=== PATIENT | male | born 1935 | race Caucasian/White ===

== ENCOUNTER 2018-03-30 17:59 | Inpatient (IN) | payer MEDICARE, OTHER ==
[2018-03-30 19:08] LABS: ADD MAN DIFF? NO; BASOPHIL # 0.1 10^3/ul (0.0-0.1); BASOPHILS % 0.8 % (0.0-2.0); EOSINOPHILS # 0.7 10^3/ul (0.0-0.5); EOSINOPHILS % 5.4 % (0.0-7.0); HEMATOCRIT 33.7 % (42.0-52.0); HEMOGLOBIN 10.2 g/dl (14.0-18.0); LYMPHOCYTES # 2.2 10^3/ul (0.8-2.9); LYMPHOCYTES % 17.2 % (15.0-51.0); MEAN CORPUSCULAR HEMOGLOBIN 28.7 pg (29.0-33.0); MEAN CORPUSCULAR HGB CONC 30.3 g/dl (32.0-37.0); MEAN CORPUSCULAR VOLUME 94.7 fl (82.0-101.0); MEAN PLATELET VOLUME 9.9 fl (7.4-10.4); MONOCYTE # 1.2 10^3/ul (0.3-0.9); MONOCYTES % 9.2 % (0.0-11.0); NEUTROPHIL # 8.5 10^3/ul (1.6-7.5); NEUTROPHILS % 66.7 % (39.0-77.0); PLATELET COUNT 440 10^3/UL (140-415); RED BLOOD COUNT 3.56 10^6/ul (4.70-6.10); RED CELL DISTRIBUTION WIDTH 15.4 % (11.5-14.5)
[2018-03-30 19:08] LABS: WHITE BLOOD COUNT 12.8 10^3/ul (4.8-10.8)
[2018-03-30 19:11] LABS: AADO2 Arterial 101.8 mmHg (7.0-24.0); Allen Test ACCEPTAB; Arterial Base Excess 3.6 mmol/L (-3.0-3); Arterial Blood Gas Oxygen Sat 92.3 mmHG (95.0-100.0); Arterial COHb 0.2 % (0.0-3.0); Arterial Fraction of Oxyhgb 91.8 % (93.0-99.0); Arterial HCO3 27.5 mmol/L (22.0-26.0); Arterial MetHb 0.3 % (0.0-1.5); Arterial pCO2 38.8 mmhg (35-45); MODE NASAL CANNULA; Site Right Radial
[2018-03-30 19:29] LABS: INR 1.05; PROTIME 13.8 Sec (11.9-14.9); PT RATIO 1.1
[2018-03-30 19:30] LABS: PARTIAL THROMBOPLASTIN TIME 31.5 Sec (23.0-35.0)
[2018-03-30 19:36] LABS: ALANINE AMINOTRANSFERASE < 6 IU/L (13-69); ALBUMIN 3.6 g/dl (3.3-4.9); ALBUMIN/GLOBULIN RATIO 0.72; ALKALINE PHOSPHATASE 145 IU/L (42-121); ANION GAP 11 (5-13); ASPARTATE AMINO TRANSFERASE 23 IU/L (15-46); BILIRUBIN,INDIRECT 0.1 mg/dl (0-1.1); BILIRUBIN,TOTAL 0.1 mg/dl (0.2-1.3); BLOOD UREA NITROGEN 59 mg/dl (7-20); CALCIUM 11.4 mg/dl (8.4-10.2); CARBON DIOXIDE 29 mmol/L (21-31); CHLORIDE 107 mmol/L (97-110); CREATININE 1.07 mg/dl (0.61-1.24); GLUCOSE 98 mg/dl (70-220); SODIUM 147 mmol/L (135-144); TOTAL PROTEIN 8.6 g/dl (6.1-8.1)
[2018-03-30] MEDS: KETOROLAC 15 MG INJ IV (19:43)
[2018-03-30] MEDS: CEFEPIME 2GM/50 ML (PMX) 50 ML IVPB (19:43)
[2018-03-30] MEDS: SODIUM CHLORIDE 0.9% 1L BAG IV* (19:44)
[2018-03-30 19:46] LABS: TROPONIN-I < 0.012 ng/ml (0.000-0.120)
[2018-03-30 19:56] LABS: ADD UMIC YES; UR ASCORBIC ACID 40 mg/dL (NEGATIVE); UR BILIRUBIN (Dip) NEGATIVE (NEGATIVE); UR BLOOD (Dip) NEGATIVE (NEGATIVE); UR CLARITY CLEAR (CLEAR); UR COLOR YELLOW (YELLOW); UR GLUCOSE (Dip) NEGATIVE (NEGATIVE); UR KETONES (Dip) NEGATIVE (NEGATIVE); UR LEUKOCYTE ESTERASE (Dip) NEGATIVE Leu/ul (NEGATIVE); UR NITRITE (Dip) NEGATIVE (NEGATIVE); UR RBC 1 /HPF (0-5); UR SPECIFIC GRAVITY (Dip) 1.017 (1.003-1.030); UR TOTAL PROTEIN (Dip) 1+ mg/dl (NEGATIVE); UR UROBILINOGEN (Dip) NEGATIVE (NEGATIVE); UR WBC 3 /HPF (0-5)
[2018-03-30] MEDS: VANCOMYCIN 1 GM (PMX) 250 ML IVPB (20:09)
[2018-03-30] MEDS ORDERED: ONDANSETRON 4 MG INJ IV ×2 (20:30→22:30)
[2018-03-30] MEDS ORDERED: NACL 0.9% 3 ML SYG IV (22:30)
[2018-03-30] MEDS: BISACODYL 10 MG SUPP PR (22:30)
[2018-03-30] MEDS ORDERED: LEVALBUTEROL HCL 1.25 MG INHALATION (22:30)
[2018-03-30 23:30] LABS: LACTIC ACID 1.4 mmol/L (0.5-2.0)
[2018-03-30] MEDS: LEVALBUTEROL (NEB) 1.25 MG/0.5 ML AMP INH (23:38)
[2018-03-31] MEDS ORDERED: PENDING SANTYL ORDER FOR WOUND CARE XX (05:00)
[2018-03-31 06:50] LABS: ADD MAN DIFF? NO
[2018-03-31 06:57] LABS: BASOPHIL # 0.1 10^3/ul (0.0-0.1); BASOPHILS % 0.7 % (0.0-2.0); EOSINOPHILS # 0.8 10^3/ul (0.0-0.5); EOSINOPHILS % 9.8 % (0.0-7.0); HEMATOCRIT 30.3 % (42.0-52.0); LYMPHOCYTES # 0.7 10^3/ul (0.8-2.9); LYMPHOCYTES % 8.5 % (15.0-51.0); MEAN CORPUSCULAR HEMOGLOBIN 28.7 pg (29.0-33.0); MEAN CORPUSCULAR HGB CONC 29.7 g/dl (32.0-37.0); MEAN CORPUSCULAR VOLUME 96.5 fl (82.0-101.0); MONOCYTE # 0.5 10^3/ul (0.3-0.9); MONOCYTES % 6.2 % (0.0-11.0); NEUTROPHILS % 74.1 % (39.0-77.0); PLATELET COUNT 336 10^3/UL (140-415); RED BLOOD COUNT 3.14 10^6/ul (4.70-6.10); RED CELL DISTRIBUTION WIDTH 15.7 % (11.5-14.5)
[2018-03-31 06:57] LABS: WHITE BLOOD COUNT 8.1 10^3/ul (4.8-10.8)
[2018-03-31 07:16] LABS: ALANINE AMINOTRANSFERASE < 6 IU/L (13-69); ALBUMIN 3.1 g/dl (3.3-4.9); ALBUMIN/GLOBULIN RATIO 0.67; ALKALINE PHOSPHATASE 109 IU/L (42-121); ANION GAP 9 (5-13); ASPARTATE AMINO TRANSFERASE 22 IU/L (15-46); BILIRUBIN,INDIRECT 0.2 mg/dl (0-1.1); BILIRUBIN,TOTAL 0.2 mg/dl (0.2-1.3); BLOOD UREA NITROGEN 61 mg/dl (7-20); CALCIUM 9.8 mg/dl (8.4-10.2); CARBON DIOXIDE 27 mmol/L (21-31); CHLORIDE 110 mmol/L (97-110); CREATININE 0.97 mg/dl (0.61-1.24); GLUCOSE 108 mg/dl (70-220); MAGNESIUM 2.7 mg/dl (1.7-2.5); POTASSIUM 4.5 mmol/L (3.5-5.1); SODIUM 146 mmol/L (135-144); TOTAL PROTEIN 7.7 g/dl (6.1-8.1)
[2018-03-31] MEDS: ASCORBIC ACID 500 MG TAB GTB (08:24)
[2018-03-31] MEDS: CEFEPIME 1GM/50 ML (PMX) 50 ML IVPB ×2 (08:24→20:04)
[2018-03-31] MEDS ORDERED: VANCOMYCIN IV PER PHARMACY XX (09:00)
[2018-03-31] MEDS: DOCUSATE SODIUM 10 MG/ML (10ML CUP) GTB (11:19)
[2018-03-31] MEDS: ALBUTEROL/IPRATROPIUM (NEB) 3 ML AMP HHN (12:54)
[2018-03-31] MEDS ORDERED: VANCOMYCIN HCL 1.25 GM in SOD CHLORIDE 0.9% 250 ML IVPB (15:00)
[2018-03-31] MEDS: VANCOMYCIN 1 GM 250 ML IVPB (15:12)
[2018-03-31] MEDS: ALBUTEROL 0.083% (NEB) 2.5 MG/3 ML AMP HHN (17:30)
[2018-03-31] MEDS: GUAIFENESIN/DM 5ML CUP GTB (20:06)
[2018-03-31] MEDS: LACTOBACILLUS RHAMNOSUS CAP GTB (20:35)
[2018-03-31] MEDS: FAMOTIDINE 20 MG TAB GTB (20:35)
[2018-03-31] MEDS: GUAIFENESIN/DM (SR) TAB PO (21:55)
[2018-03-31] MEDS: BISACODYL 10 MG SUPP PR (21:56)
[2018-04-01] MEDS: ALBUTEROL 0.083% (NEB) 2.5 MG/3 ML AMP HHN (00:33)
[2018-04-01 06:27] LABS: ADD MAN DIFF? NO
[2018-04-01 06:29] LABS: BASOPHIL # 0.1 10^3/ul (0.0-0.1); BASOPHILS % 0.8 % (0.0-2.0); EOSINOPHILS # 0.8 10^3/ul (0.0-0.5); EOSINOPHILS % 11.6 % (0.0-7.0); HEMATOCRIT 29.6 % (42.0-52.0); HEMOGLOBIN 8.7 g/dl (14.0-18.0); LYMPHOCYTES # 0.9 10^3/ul (0.8-2.9); MEAN CORPUSCULAR HEMOGLOBIN 28.7 pg (29.0-33.0); MEAN CORPUSCULAR HGB CONC 29.4 g/dl (32.0-37.0); MEAN CORPUSCULAR VOLUME 97.7 fl (82.0-101.0); MEAN PLATELET VOLUME 10.3 fl (7.4-10.4); MONOCYTE # 0.7 10^3/ul (0.3-0.9); NEUTROPHIL # 4.7 10^3/ul (1.6-7.5); NEUTROPHILS % 64.8 % (39.0-77.0); PLATELET COUNT 267 10^3/UL (140-415); RED BLOOD COUNT 3.03 10^6/ul (4.70-6.10); RED CELL DISTRIBUTION WIDTH 15.7 % (11.5-14.5)
[2018-04-01 06:29] LABS: WHITE BLOOD COUNT 7.3 10^3/ul (4.8-10.8)
[2018-04-01 07:09] LABS: ALANINE AMINOTRANSFERASE 7 IU/L (13-69); ALBUMIN 3.1 g/dl (3.3-4.9); ALBUMIN/GLOBULIN RATIO 0.68; ALKALINE PHOSPHATASE 120 IU/L (42-121); ANION GAP 4 (5-13); ASPARTATE AMINO TRANSFERASE 20 IU/L (15-46); BLOOD UREA NITROGEN 47 mg/dl (7-20); CALCIUM 10.3 mg/dl (8.4-10.2); CARBON DIOXIDE 30 mmol/L (21-31); CHLORIDE 113 mmol/L (97-110); CREATININE 0.91 mg/dl (0.61-1.24); GLUCOSE 120 mg/dl (70-220); MAGNESIUM 2.4 mg/dl (1.7-2.5); PHOSPHORUS 3.3 mg/dl (2.5-4.9); POTASSIUM 4.2 mmol/L (3.5-5.1); SODIUM 147 mmol/L (135-144); TOTAL PROTEIN 7.6 g/dl (6.1-8.1)
[2018-04-01] MEDS: DOCUSATE SODIUM 10 MG/ML (10ML CUP) GTB (09:00)
[2018-04-01] MEDS: ALBUTEROL/IPRATROPIUM (NEB) 3 ML AMP HHN ×3 (09:02→20:27)
[2018-04-01] MEDS: CEFEPIME 1GM/50 ML (PMX) 50 ML IVPB ×2 (09:10→20:49)
[2018-04-01] MEDS: LACTOBACILLUS RHAMNOSUS CAP GTB ×2 (09:11→20:50)
[2018-04-01] MEDS: GUAIFENESIN/DM (SR) TAB PO ×2 (09:11→20:50)
[2018-04-01] MEDS: ASCORBIC ACID 500 MG TAB GTB (09:11)
[2018-04-01] MEDS: ENOXAPARIN 30 MG/0.3 ML SYG SC (09:21)
[2018-04-01] MEDS: VANCOMYCIN 1 GM 250 ML IVPB (15:14)
[2018-04-01] MEDS: BISACODYL 10 MG SUPP PR (20:50)
[2018-04-01] MEDS: FAMOTIDINE 20 MG TAB GTB (20:51)
[2018-04-02 07:01] LABS: ADD MAN DIFF? NO
[2018-04-02 07:10] LABS: ABNORMAL IP MESSAGE 1; BASOPHIL # 0.1 10^3/ul (0.0-0.1); BASOPHILS % 0.9 % (0.0-2.0); EOSINOPHILS # 0.9 10^3/ul (0.0-0.5); EOSINOPHILS % 12.6 % (0.0-7.0); HEMATOCRIT 27.7 % (42.0-52.0); LYMPHOCYTES # 1.1 10^3/ul (0.8-2.9); LYMPHOCYTES % 15.4 % (15.0-51.0); MEAN CORPUSCULAR HEMOGLOBIN 27.9 pg (29.0-33.0); MEAN CORPUSCULAR HGB CONC 28.9 g/dl (32.0-37.0); MEAN CORPUSCULAR VOLUME 96.5 fl (82.0-101.0); MEAN PLATELET VOLUME 10.4 fl (7.4-10.4); MONOCYTE # 0.6 10^3/ul (0.3-0.9); MONOCYTES % 8.8 % (0.0-11.0); NEUTROPHIL # 4.3 10^3/ul (1.6-7.5); NEUTROPHILS % 61.3 % (39.0-77.0); PLATELET COUNT 275 10^3/UL (140-415); POSITIVE DIFF @See below; RED BLOOD COUNT 2.87 10^6/ul (4.70-6.10); RED CELL DISTRIBUTION WIDTH 15.5 % (11.5-14.5)
[2018-04-02 07:31] LABS: ANION GAP 5 (5-13); BLOOD UREA NITROGEN 36 mg/dl (7-20); CALCIUM 10.5 mg/dl (8.4-10.2); CARBON DIOXIDE 28 mmol/L (21-31); CHLORIDE 114 mmol/L (97-110); CREATININE 0.88 mg/dl (0.61-1.24); GLUCOSE 94 mg/dl (70-220); MAGNESIUM 2.4 mg/dl (1.7-2.5); POTASSIUM 3.8 mmol/L (3.5-5.1); SODIUM 147 mmol/L (135-144)
[2018-04-02] MEDS: DOCUSATE SODIUM 10 MG/ML (10ML CUP) GTB (08:00)
[2018-04-02] MEDS: ASCORBIC ACID 500 MG TAB GTB (08:01)
[2018-04-02] MEDS: LACTOBACILLUS RHAMNOSUS CAP GTB ×2 (08:01→21:06)
[2018-04-02] MEDS: CEFEPIME 1GM/50 ML (PMX) 50 ML IVPB ×2 (08:01→21:05)
[2018-04-02] MEDS: GUAIFENESIN/DM (SR) TAB PO ×2 (08:08→21:15)
[2018-04-02] MEDS: ENOXAPARIN 30 MG/0.3 ML SYG SC (08:10)
[2018-04-02] MEDS: ALBUTEROL/IPRATROPIUM (NEB) 3 ML AMP HHN ×3 (09:29→20:10)
[2018-04-02] MEDS: ASPIRIN 81 MG TAB GTB (10:19)
[2018-04-02] MEDS ORDERED: METOCLOPRAMIDE 5 MG TAB GTB (12:00)
[2018-04-02] MEDS: MIDODRINE 5 MG TAB GTB ×2 (12:33→18:21)
[2018-04-02] MEDS: VALPROIC ACID LIQUID CUP 250 MG/5 ML CUP GTB ×2 (12:34→21:06)
[2018-04-02] MEDS: VANCOMYCIN 1 GM 250 ML IVPB (14:45)
[2018-04-02] MEDS: BALSAM PERU/CASTOR OIL 60 GM TUBE TOP (14:46)
[2018-04-02] MEDS: traZODone 50 MG TAB GTB (21:06)
[2018-04-02] MEDS: FAMOTIDINE 20 MG TAB GTB (21:06)
[2018-04-02] MEDS: BISACODYL 10 MG SUPP PR (22:42)
[2018-04-03] MEDS: MIDODRINE 5 MG TAB GTB ×5 (00:15→23:20)
[2018-04-03] MEDS: ASCORBIC ACID 500 MG TAB GTB (08:15)
[2018-04-03] MEDS: ASPIRIN 81 MG TAB GTB (08:15)
[2018-04-03] MEDS: CEFEPIME 1GM/50 ML (PMX) 50 ML IVPB ×2 (08:15→20:19)
[2018-04-03] MEDS: GUAIFENESIN/DM (SR) TAB PO ×2 (08:15→20:18)
[2018-04-03] MEDS: VALPROIC ACID LIQUID CUP 250 MG/5 ML CUP GTB ×3 (08:15→20:18)
[2018-04-03] MEDS: DOCUSATE SODIUM 10 MG/ML (10ML CUP) GTB (08:15)
[2018-04-03] MEDS: BALSAM PERU/CASTOR OIL 60 GM TUBE TOP ×2 (08:16→20:19)
[2018-04-03] MEDS: ENOXAPARIN 30 MG/0.3 ML SYG SC (08:26)
[2018-04-03] MEDS: LACTOBACILLUS RHAMNOSUS CAP GTB ×2 (08:27→20:18)
[2018-04-03] MEDS: ALBUTEROL/IPRATROPIUM (NEB) 3 ML AMP HHN ×3 (08:53→20:42)
[2018-04-03 15:35] LABS: VANCOMYCIN,TROUGH 15.4 ug/ml (10.0-20.0)
[2018-04-03] MEDS: VANCOMYCIN 1 GM 250 ML IVPB (15:53)
[2018-04-03] MEDS: FAMOTIDINE 20 MG TAB GTB (20:18)
[2018-04-03] MEDS: traZODone 50 MG TAB GTB (20:18)
[2018-04-03] MEDS: BISACODYL 10 MG SUPP PR (23:15)
[2018-04-04] MEDS: GUAIFENESIN/DM 5ML CUP GTB (05:24)
[2018-04-04] MEDS: MIDODRINE 5 MG TAB GTB ×3 (05:25→17:10)
[2018-04-04] MEDS: ACETAMINOPHEN 325 MG TAB GTB (05:25)
[2018-04-04] MEDS: ALBUTEROL/IPRATROPIUM (NEB) 3 ML AMP HHN ×3 (08:32→20:48)
[2018-04-04] MEDS: BALSAM PERU/CASTOR OIL 60 GM TUBE TOP (09:00)
[2018-04-04] MEDS: DOCUSATE SODIUM 10 MG/ML (10ML CUP) GTB (10:00)
[2018-04-04] MEDS: CEFEPIME 1GM/50 ML (PMX) 50 ML IVPB ×2 (10:01→21:33)
[2018-04-04] MEDS: ASPIRIN 81 MG TAB GTB (10:01)
[2018-04-04] MEDS: ASCORBIC ACID 500 MG TAB GTB (10:01)
[2018-04-04] MEDS: VALPROIC ACID LIQUID CUP 250 MG/5 ML CUP GTB ×3 (10:01→21:33)
[2018-04-04] MEDS: LACTOBACILLUS RHAMNOSUS CAP GTB ×2 (10:01→21:33)
[2018-04-04] MEDS: ENOXAPARIN 30 MG/0.3 ML SYG SC (10:21)
[2018-04-04] MEDS: GUAIFENESIN/DM (SR) TAB PO ×2 (10:22→21:33)
[2018-04-04] MEDS: VANCOMYCIN 1 GM 250 ML IVPB (15:00)
[2018-04-04] MEDS: FAMOTIDINE 20 MG TAB GTB (21:33)
[2018-04-04] MEDS: traZODone 50 MG TAB GTB (21:34)
[2018-04-04] MEDS: BISACODYL 10 MG SUPP PR (22:30)
[2018-04-05] MEDS: ACETAMINOPHEN 325 MG TAB GTB (01:11)
[2018-04-05] MEDS: ALBUMIN HUMAN 25% 100 ML IV (02:51)
[2018-04-05] MEDS: SOD CHLORIDE 0.9% 1,000 ML IV ×4 (02:52→08:39)
[2018-04-05] MEDS: MIDODRINE 5 MG TAB GTB ×5 (06:00→23:38)
[2018-04-05 06:10] LABS: ADD MAN DIFF? NO
[2018-04-05 06:37] LABS: WHITE BLOOD COUNT 10.1 10^3/ul (4.8-10.8)
[2018-04-05 06:37] LABS: BASOPHIL # 0.1 10^3/ul (0.0-0.1); BASOPHILS % 0.5 % (0.0-2.0); EOSINOPHILS # 0.6 10^3/ul (0.0-0.5); EOSINOPHILS % 5.8 % (0.0-7.0); HEMATOCRIT 23.4 % (42.0-52.0); HEMOGLOBIN 7.2 g/dl (14.0-18.0); LYMPHOCYTES # 1.4 10^3/ul (0.8-2.9); LYMPHOCYTES % 13.8 % (15.0-51.0); MEAN CORPUSCULAR HEMOGLOBIN 29.3 pg (29.0-33.0); MEAN CORPUSCULAR HGB CONC 30.8 g/dl (32.0-37.0); MEAN CORPUSCULAR VOLUME 95.1 fl (82.0-101.0); MEAN PLATELET VOLUME 10.6 fl (7.4-10.4); MONOCYTE # 0.8 10^3/ul (0.3-0.9); NEUTROPHIL # 7.1 10^3/ul (1.6-7.5); NEUTROPHILS % 70.8 % (39.0-77.0); PLATELET COUNT 215 10^3/UL (140-415); RED BLOOD COUNT 2.46 10^6/ul (4.70-6.10); RED CELL DISTRIBUTION WIDTH 15.8 % (11.5-14.5)
[2018-04-05 06:53] LABS: CREATININE 0.91 mg/dl (0.61-1.24)
[2018-04-05 06:53] LABS: BLOOD UREA NITROGEN 26 mg/dl (7-20)
[2018-04-05] MEDS: ALBUTEROL/IPRATROPIUM (NEB) 3 ML AMP HHN ×3 (08:21→19:48)
[2018-04-05] MEDS: CEFEPIME 1GM/50 ML (PMX) 50 ML IVPB ×2 (08:37→20:27)
[2018-04-05] MEDS: DOCUSATE SODIUM 10 MG/ML (10ML CUP) GTB (08:37)
[2018-04-05] MEDS: VALPROIC ACID LIQUID CUP 250 MG/5 ML CUP GTB ×3 (08:37→20:28)
[2018-04-05] MEDS: ASCORBIC ACID 500 MG TAB GTB (08:38)
[2018-04-05] MEDS: ASPIRIN 81 MG TAB GTB (08:38)
[2018-04-05] MEDS: LACTOBACILLUS RHAMNOSUS CAP GTB ×2 (08:38→20:28)
[2018-04-05] MEDS: GUAIFENESIN/DM (SR) TAB PO ×2 (08:38→20:28)
[2018-04-05] MEDS: BALSAM PERU/CASTOR OIL 60 GM TUBE TOP (08:39)
[2018-04-05] MEDS: ENOXAPARIN 30 MG/0.3 ML SYG SC (09:02)
[2018-04-05] MEDS: VANCOMYCIN 1 GM 250 ML IVPB (15:48)
[2018-04-05] MEDS: SOD CHLORIDE 0.9% 250 ML IV* (18:50)
[2018-04-05 20:17] LABS: IMMEDIATE SPIN CROSSMATCH 1 1
[2018-04-05] MEDS: FAMOTIDINE 20 MG TAB GTB (20:28)
[2018-04-05] MEDS: traZODone 50 MG TAB GTB (20:28)
[2018-04-05] MEDS: BISACODYL 10 MG SUPP PR (22:26)
[2018-04-06] MEDS: MIDODRINE 5 MG TAB GTB ×4 (06:00→23:57)
[2018-04-06] MEDS: ALBUTEROL/IPRATROPIUM (NEB) 3 ML AMP HHN ×3 (08:10→20:28)
[2018-04-06] MEDS: DOCUSATE SODIUM 10 MG/ML (10ML CUP) GTB (08:17)
[2018-04-06] MEDS: ASCORBIC ACID 500 MG TAB GTB (08:17)
[2018-04-06] MEDS: VALPROIC ACID LIQUID CUP 250 MG/5 ML CUP GTB ×3 (08:17→20:55)
[2018-04-06] MEDS: LACTOBACILLUS RHAMNOSUS CAP GTB ×2 (08:17→20:55)
[2018-04-06] MEDS: ASPIRIN 81 MG TAB GTB (08:17)
[2018-04-06] MEDS: GUAIFENESIN/DM (SR) TAB PO ×2 (08:17→20:55)
[2018-04-06] MEDS: CEFEPIME 1GM/50 ML (PMX) 50 ML IVPB (08:17)
[2018-04-06] MEDS: BALSAM PERU/CASTOR OIL 60 GM TUBE TOP (08:18)
[2018-04-06] MEDS: ENOXAPARIN 30 MG/0.3 ML SYG SC (09:00)
[2018-04-06 09:52] LABS: OCCULT BLOOD STOOL NEGATIVE (NEGATIVE)
[2018-04-06] MEDS: MEROPENEM 1 GM/50ML(PMX) 50 ML IVPB ×2 (11:22→20:55)
[2018-04-06] MEDS: VANCOMYCIN 1 GM 250 ML IVPB (15:12)
[2018-04-06] MEDS: FAMOTIDINE 20 MG TAB GTB (20:55)
[2018-04-06] MEDS: traZODone 50 MG TAB GTB (20:55)
[2018-04-06] MEDS: BISACODYL 10 MG SUPP PR (23:57)
[2018-04-07] MEDS: MIDODRINE 5 MG TAB GTB ×4 (05:49→23:43)
[2018-04-07 07:34] LABS: CREATININE 0.82 mg/dl (0.61-1.24)
[2018-04-07 07:34] LABS: BLOOD UREA NITROGEN 21 mg/dl (7-20)
[2018-04-07] MEDS: ALBUTEROL/IPRATROPIUM (NEB) 3 ML AMP HHN ×3 (08:38→20:06)
[2018-04-07] MEDS: DOCUSATE SODIUM 10 MG/ML (10ML CUP) GTB (08:39)
[2018-04-07] MEDS: VALPROIC ACID LIQUID CUP 250 MG/5 ML CUP GTB ×3 (08:39→21:13)
[2018-04-07] MEDS: GUAIFENESIN/DM (SR) TAB PO ×2 (08:40→23:34)
[2018-04-07] MEDS: LACTOBACILLUS RHAMNOSUS CAP GTB ×2 (08:40→21:13)
[2018-04-07] MEDS: ASPIRIN 81 MG TAB GTB (08:40)
[2018-04-07] MEDS: MEROPENEM 1 GM/50ML(PMX) 50 ML IVPB ×2 (08:40→21:13)
[2018-04-07] MEDS: BALSAM PERU/CASTOR OIL 60 GM TUBE TOP (08:40)
[2018-04-07] MEDS: ASCORBIC ACID 500 MG TAB GTB (08:40)
[2018-04-07] MEDS: ENOXAPARIN 30 MG/0.3 ML SYG SC (08:52)
[2018-04-07 14:50] LABS: VANCOMYCIN,TROUGH 17.7 ug/ml (10.0-20.0)
[2018-04-07] MEDS: VANCOMYCIN 1 GM 250 ML IVPB ×2 (15:23→15:34)
[2018-04-07] MEDS: ALTEPLASE (CATHFLO) 2 MG INJ CATHETER (18:28)
[2018-04-07] MEDS: traZODone 50 MG TAB GTB (21:12)
[2018-04-07] MEDS: FAMOTIDINE 20 MG TAB GTB (21:12)
[2018-04-07] MEDS: BISACODYL 10 MG SUPP PR (22:30)
[2018-04-07] MEDS: LORAZEPAM 0.5 MG TAB GTB (23:57)
[2018-04-08] MEDS: LEVALBUTEROL (NEB) 1.25 MG/0.5 ML AMP INH (01:02)
[2018-04-08] MEDS: METOPROLOL 5 MG INJ IV ×2 (04:39→17:29)
[2018-04-08] MEDS: MIDODRINE 5 MG TAB GTB ×4 (05:31→23:49)
[2018-04-08 06:50] LABS: ADD MAN DIFF? NO
[2018-04-08 06:53] LABS: BASOPHIL # 0.1 10^3/ul (0.0-0.1); BASOPHILS % 0.7 % (0.0-2.0); EOSINOPHILS # 0.7 10^3/ul (0.0-0.5); EOSINOPHILS % 7.4 % (0.0-7.0); HEMATOCRIT 28.9 % (42.0-52.0); HEMOGLOBIN 8.9 g/dl (14.0-18.0); LYMPHOCYTES # 0.9 10^3/ul (0.8-2.9); LYMPHOCYTES % 9.3 % (15.0-51.0); MEAN CORPUSCULAR HEMOGLOBIN 28.6 pg (29.0-33.0); MEAN CORPUSCULAR HGB CONC 30.8 g/dl (32.0-37.0); MEAN CORPUSCULAR VOLUME 92.9 fl (82.0-101.0); MEAN PLATELET VOLUME 10.6 fl (7.4-10.4); MONOCYTE # 0.9 10^3/ul (0.3-0.9); MONOCYTES % 8.7 % (0.0-11.0); NEUTROPHIL # 7.3 10^3/ul (1.6-7.5); PLATELET COUNT 242 10^3/UL (140-415); RED BLOOD COUNT 3.11 10^6/ul (4.70-6.10); RED CELL DISTRIBUTION WIDTH 15.1 % (11.5-14.5)
[2018-04-08 07:19] LABS: ANION GAP 8 (5-13); BLOOD UREA NITROGEN 23 mg/dl (7-20); CALCIUM 10.2 mg/dl (8.4-10.2); CARBON DIOXIDE 29 mmol/L (21-31); CHLORIDE 101 mmol/L (97-110); CREATININE 0.73 mg/dl (0.61-1.24); GLUCOSE 94 mg/dl (70-220); SODIUM 138 mmol/L (135-144)
[2018-04-08] MEDS: ALBUTEROL/IPRATROPIUM (NEB) 3 ML AMP HHN ×3 (08:00→20:27)
[2018-04-08] MEDS: DOCUSATE SODIUM 10 MG/ML (10ML CUP) GTB (08:50)
[2018-04-08] MEDS: LACTOBACILLUS RHAMNOSUS CAP GTB ×2 (08:51→20:44)
[2018-04-08] MEDS: VALPROIC ACID LIQUID CUP 250 MG/5 ML CUP GTB ×3 (08:51→20:44)
[2018-04-08] MEDS: ASCORBIC ACID 500 MG TAB GTB (08:51)
[2018-04-08] MEDS: ASPIRIN 81 MG TAB GTB (08:51)
[2018-04-08] MEDS: MEROPENEM 1 GM/50ML(PMX) 50 ML IVPB ×2 (08:51→20:44)
[2018-04-08] MEDS: ACETAMINOPHEN 325 MG TAB GTB (08:53)
[2018-04-08] MEDS: BALSAM PERU/CASTOR OIL 60 GM TUBE TOP (08:53)
[2018-04-08] MEDS: ENOXAPARIN 30 MG/0.3 ML SYG SC (09:04)
[2018-04-08] MEDS: GUAIFENESIN/DM (SR) TAB PO ×2 (11:41→20:44)
[2018-04-08] MEDS: VANCOMYCIN 750 MG (PMX) 250 ML IVPB (16:31)
[2018-04-08] MEDS: traZODone 50 MG TAB GTB (20:44)
[2018-04-08] MEDS: FAMOTIDINE 20 MG TAB GTB (20:44)
[2018-04-08] MEDS: BISACODYL 10 MG SUPP PR (22:42)
[2018-04-09] MEDS: METOPROLOL 5 MG INJ IV ×2 (03:57→20:46)
[2018-04-09] MEDS: MIDODRINE 5 MG TAB GTB ×3 (05:31→17:33)
[2018-04-09] MEDS: ALBUTEROL/IPRATROPIUM (NEB) 3 ML AMP HHN ×3 (08:17→20:31)
[2018-04-09] MEDS: LACTOBACILLUS RHAMNOSUS CAP GTB ×3 (09:00→20:14)
[2018-04-09] MEDS: VALPROIC ACID LIQUID CUP 250 MG/5 ML CUP GTB ×3 (09:33→20:10)
[2018-04-09] MEDS: DOCUSATE SODIUM 10 MG/ML (10ML CUP) GTB (09:33)
[2018-04-09] MEDS: MEROPENEM 1 GM/50ML(PMX) 50 ML IVPB ×2 (09:34→20:10)
[2018-04-09] MEDS: GUAIFENESIN/DM (SR) TAB PO ×2 (09:34→20:14)
[2018-04-09] MEDS: ASCORBIC ACID 500 MG TAB GTB (09:34)
[2018-04-09] MEDS: ASPIRIN 81 MG TAB GTB (09:35)
[2018-04-09] MEDS: BALSAM PERU/CASTOR OIL 60 GM TUBE TOP (09:36)
[2018-04-09] MEDS: ENOXAPARIN 30 MG/0.3 ML SYG SC (09:52)
[2018-04-09] MEDS: VANCOMYCIN 750 MG (PMX) 250 ML IVPB (16:07)
[2018-04-09] MEDS: traZODone 50 MG TAB GTB (20:11)
[2018-04-09] MEDS: FAMOTIDINE 20 MG TAB GTB (20:14)
[2018-04-09] MEDS: BISACODYL 10 MG SUPP PR (22:30)
[2018-04-10] MEDS: METOPROLOL 5 MG INJ IV ×2 (02:07→09:19)
[2018-04-10] MEDS: MIDODRINE 5 MG TAB GTB ×4 (05:44→17:45)
[2018-04-10 07:12] LABS: BLOOD UREA NITROGEN 28 mg/dl (7-20)
[2018-04-10 07:12] LABS: CREATININE 0.61 mg/dl (0.61-1.24)
[2018-04-10] MEDS: VALPROIC ACID LIQUID CUP 250 MG/5 ML CUP GTB ×3 (08:05→20:41)
[2018-04-10] MEDS: GUAIFENESIN/DM (SR) TAB PO ×2 (08:05→20:41)
[2018-04-10] MEDS: ASPIRIN 81 MG TAB GTB (08:05)
[2018-04-10] MEDS: LACTOBACILLUS RHAMNOSUS CAP GTB ×2 (08:05→20:41)
[2018-04-10] MEDS: ASCORBIC ACID 500 MG TAB GTB (08:05)
[2018-04-10] MEDS: DOCUSATE SODIUM 10 MG/ML (10ML CUP) GTB (08:05)
[2018-04-10] MEDS: MEROPENEM 1 GM/50ML(PMX) 50 ML IVPB ×2 (08:06→20:42)
[2018-04-10] MEDS: BALSAM PERU/CASTOR OIL 60 GM TUBE TOP (08:07)
[2018-04-10] MEDS: ENOXAPARIN 30 MG/0.3 ML SYG SC (08:22)
[2018-04-10] MEDS: ALBUTEROL/IPRATROPIUM (NEB) 3 ML AMP HHN ×3 (08:34→19:57)
[2018-04-10] MEDS: VANCOMYCIN 750 MG (PMX) 250 ML IVPB (15:48)
[2018-04-10 15:53] LABS: VANCOMYCIN,TROUGH 13.5 ug/ml (10.0-20.0)
[2018-04-10] MEDS: traZODone 50 MG TAB GTB (20:41)
[2018-04-10] MEDS: FAMOTIDINE 20 MG TAB GTB (20:41)
[2018-04-11] MEDS: MIDODRINE 5 MG TAB GTB ×4 (00:11→18:31)
[2018-04-11] MEDS: BISACODYL 10 MG SUPP PR ×2 (00:12→22:30)
[2018-04-11] MEDS: LEVOFLOXACIN 500 MG TAB PO (05:26)
[2018-04-11 06:45] LABS: ADD MAN DIFF? NO
[2018-04-11 06:47] LABS: BASOPHIL # 0.1 10^3/ul (0.0-0.1); BASOPHILS % 0.7 % (0.0-2.0); EOSINOPHILS # 1.2 10^3/ul (0.0-0.5); EOSINOPHILS % 16.9 % (0.0-7.0); HEMATOCRIT 27.4 % (42.0-52.0); HEMOGLOBIN 8.3 g/dl (14.0-18.0); LYMPHOCYTES # 1.1 10^3/ul (0.8-2.9); LYMPHOCYTES % 15.1 % (15.0-51.0); MEAN CORPUSCULAR HEMOGLOBIN 28.1 pg (29.0-33.0); MEAN CORPUSCULAR HGB CONC 30.3 g/dl (32.0-37.0); MEAN CORPUSCULAR VOLUME 92.9 fl (82.0-101.0); MEAN PLATELET VOLUME 10.5 fl (7.4-10.4); MONOCYTE # 0.6 10^3/ul (0.3-0.9); MONOCYTES % 8.9 % (0.0-11.0); NEUTROPHIL # 4.1 10^3/ul (1.6-7.5); NEUTROPHILS % 57.5 % (39.0-77.0); PLATELET COUNT 214 10^3/UL (140-415); RED BLOOD COUNT 2.95 10^6/ul (4.70-6.10); RED CELL DISTRIBUTION WIDTH 15.1 % (11.5-14.5)
[2018-04-11 07:09] LABS: ANION GAP 8 (5-13); BLOOD UREA NITROGEN 31 mg/dl (7-20); CALCIUM 9.9 mg/dl (8.4-10.2); CARBON DIOXIDE 29 mmol/L (21-31); CHLORIDE 98 mmol/L (97-110); CREATININE 0.58 mg/dl (0.61-1.24); GLUCOSE 119 mg/dl (70-220); POTASSIUM 4.2 mmol/L (3.5-5.1); SODIUM 135 mmol/L (135-144)
[2018-04-11] MEDS: ALBUTEROL/IPRATROPIUM (NEB) 3 ML AMP HHN ×3 (07:44→20:31)
[2018-04-11] MEDS: GUAIFENESIN/DM (SR) TAB PO ×2 (08:40→20:44)
[2018-04-11] MEDS: VALPROIC ACID LIQUID CUP 250 MG/5 ML CUP GTB ×3 (08:40→20:43)
[2018-04-11] MEDS: DOCUSATE SODIUM 10 MG/ML (10ML CUP) GTB (08:40)
[2018-04-11] MEDS: MEROPENEM 1 GM/50ML(PMX) 50 ML IVPB (08:41)
[2018-04-11] MEDS: ASCORBIC ACID 500 MG TAB GTB (08:41)
[2018-04-11] MEDS: ASPIRIN 81 MG TAB GTB (08:41)
[2018-04-11] MEDS: BALSAM PERU/CASTOR OIL 60 GM TUBE TOP (08:48)
[2018-04-11] MEDS: ENOXAPARIN 30 MG/0.3 ML SYG SC (09:01)
[2018-04-11] MEDS: LACTOBACILLUS RHAMNOSUS CAP GTB ×2 (14:45→20:43)
[2018-04-11] MEDS: VANCOMYCIN 750 MG (PMX) 250 ML IVPB (16:53)
[2018-04-11] MEDS: traZODone 50 MG TAB GTB (20:44)
[2018-04-11] MEDS: FAMOTIDINE 20 MG TAB GTB (20:44)
[2018-04-12] MEDS: MIDODRINE 5 MG TAB GTB ×4 (00:39→17:05)
[2018-04-12] MEDS: LEVOFLOXACIN 500 MG TAB PO (05:39)
[2018-04-12 06:22] LABS: ADD MAN DIFF? NO
[2018-04-12 06:23] LABS: WHITE BLOOD COUNT 6.9 10^3/ul (4.8-10.8)
[2018-04-12 06:23] LABS: BASOPHILS % 0.6 % (0.0-2.0); EOSINOPHILS # 0.8 10^3/ul (0.0-0.5); EOSINOPHILS % 12.2 % (0.0-7.0); HEMATOCRIT 27.1 % (42.0-52.0); HEMOGLOBIN 8.2 g/dl (14.0-18.0); LYMPHOCYTES # 1.2 10^3/ul (0.8-2.9); LYMPHOCYTES % 16.9 % (15.0-51.0); MEAN CORPUSCULAR HEMOGLOBIN 27.8 pg (29.0-33.0); MEAN CORPUSCULAR HGB CONC 30.3 g/dl (32.0-37.0); MEAN CORPUSCULAR VOLUME 91.9 fl (82.0-101.0); MEAN PLATELET VOLUME 10.4 fl (7.4-10.4); MONOCYTE # 0.6 10^3/ul (0.3-0.9); MONOCYTES % 8.4 % (0.0-11.0); NEUTROPHIL # 4.2 10^3/ul (1.6-7.5); PLATELET COUNT 219 10^3/UL (140-415); RED BLOOD COUNT 2.95 10^6/ul (4.70-6.10); RED CELL DISTRIBUTION WIDTH 14.7 % (11.5-14.5)
[2018-04-12] MEDS: ALBUTEROL/IPRATROPIUM (NEB) 3 ML AMP HHN ×3 (08:59→19:25)
[2018-04-12] MEDS: ENOXAPARIN 30 MG/0.3 ML SYG SC (09:00)
[2018-04-12] MEDS: GUAIFENESIN/DM (SR) TAB PO ×2 (09:00→23:48)
[2018-04-12] MEDS: SOD CHLORIDE 0.9% 100 ML (09:46)
[2018-04-12] MEDS: IOHEXOL 300MG/ML 150 ML BTL (09:47)
[2018-04-12] MEDS: ASPIRIN 81 MG TAB GTB (12:06)
[2018-04-12] MEDS: ASCORBIC ACID 500 MG TAB GTB (12:07)
[2018-04-12] MEDS: COLLAGENASE 5 GM (UD JAR) TOP (12:07)
[2018-04-12] MEDS: LACTOBACILLUS RHAMNOSUS CAP GTB ×2 (12:07→23:48)
[2018-04-12] MEDS: VALPROIC ACID LIQUID CUP 250 MG/5 ML CUP GTB ×3 (12:07→21:58)
[2018-04-12] MEDS: DOCUSATE SODIUM 10 MG/ML (10ML CUP) GTB (12:07)
[2018-04-12] MEDS: VANCOMYCIN 750 MG (PMX) 250 ML IVPB (17:08)
[2018-04-12] MEDS: FUROSEMIDE 20 MG INJ IV (17:08)
[2018-04-12] MEDS: traZODone 50 MG TAB GTB (21:58)
[2018-04-12] MEDS: FAMOTIDINE 20 MG TAB GTB (21:58)
[2018-04-12] MEDS: BISACODYL 10 MG SUPP PR (23:48)
[2018-04-13] MEDS: MIDODRINE 5 MG TAB GTB ×4 (02:16→17:10)
[2018-04-13] MEDS: LEVOFLOXACIN 500 MG TAB PO (05:59)
[2018-04-13 07:07] LABS: ANION GAP 9 (5-13); BLOOD UREA NITROGEN 29 mg/dl (7-20); CALCIUM 9.8 mg/dl (8.4-10.2); CARBON DIOXIDE 33 mmol/L (21-31); CHLORIDE 94 mmol/L (97-110); CREATININE 0.65 mg/dl (0.61-1.24); GLUCOSE 84 mg/dl (70-220); POTASSIUM 4.7 mmol/L (3.5-5.1); SODIUM 136 mmol/L (135-144)
[2018-04-13] MEDS: ALBUTEROL/IPRATROPIUM (NEB) 3 ML AMP HHN ×3 (08:29→20:22)
[2018-04-13] MEDS: DOCUSATE SODIUM 10 MG/ML (10ML CUP) GTB (10:18)
[2018-04-13] MEDS: LACTOBACILLUS RHAMNOSUS CAP GTB ×2 (10:18→20:08)
[2018-04-13] MEDS: GUAIFENESIN/DM (SR) TAB PO ×2 (10:18→20:08)
[2018-04-13] MEDS: COLLAGENASE 5 GM (UD JAR) TOP (10:19)
[2018-04-13] MEDS: VALPROIC ACID LIQUID CUP 250 MG/5 ML CUP GTB ×3 (10:19→20:09)
[2018-04-13] MEDS: ASCORBIC ACID 500 MG TAB GTB (10:19)
[2018-04-13] MEDS: ASPIRIN 81 MG TAB GTB (10:19)
[2018-04-13] MEDS: ENOXAPARIN 30 MG/0.3 ML SYG SC (10:28)
[2018-04-13] MEDS: VANCOMYCIN 750 MG (PMX) 250 ML IVPB (17:10)
[2018-04-13] MEDS: traZODone 50 MG TAB GTB (20:08)
[2018-04-13] MEDS: FAMOTIDINE 20 MG TAB GTB (20:08)
[2018-04-13] MEDS: BISACODYL 10 MG SUPP PR (22:40)
[2018-04-14] MEDS: MIDODRINE 5 MG TAB GTB ×5 (00:24→23:11)
[2018-04-14] MEDS: LEVOFLOXACIN 500 MG TAB PO (05:57)
[2018-04-14 07:13] LABS: ANION GAP 6 (5-13); BLOOD UREA NITROGEN 26 mg/dl (7-20); CALCIUM 9.8 mg/dl (8.4-10.2); CARBON DIOXIDE 32 mmol/L (21-31); CHLORIDE 98 mmol/L (97-110); CREATININE 0.65 mg/dl (0.61-1.24); GLUCOSE 94 mg/dl (70-220); POTASSIUM 4.6 mmol/L (3.5-5.1); SODIUM 136 mmol/L (135-144)
[2018-04-14] MEDS: ALBUTEROL/IPRATROPIUM (NEB) 3 ML AMP HHN ×3 (08:06→20:28)
[2018-04-14] MEDS: COLLAGENASE 5 GM (UD JAR) TOP (08:44)
[2018-04-14] MEDS: ASPIRIN 81 MG TAB GTB (08:44)
[2018-04-14] MEDS: LACTOBACILLUS RHAMNOSUS CAP GTB ×2 (08:44→21:47)
[2018-04-14] MEDS: ENOXAPARIN 30 MG/0.3 ML SYG SC (08:45)
[2018-04-14] MEDS: ASCORBIC ACID 500 MG TAB GTB (08:46)
[2018-04-14] MEDS: VALPROIC ACID LIQUID CUP 250 MG/5 ML CUP GTB ×3 (08:46→21:47)
[2018-04-14] MEDS: GUAIFENESIN/DM (SR) TAB PO ×2 (08:46→21:47)
[2018-04-14] MEDS: DOCUSATE SODIUM 10 MG/ML (10ML CUP) GTB (08:46)
[2018-04-14] MEDS: FAMOTIDINE 20 MG TAB GTB (21:47)
[2018-04-14] MEDS: BISACODYL 10 MG SUPP PR (21:48)
[2018-04-14] MEDS: traZODone 50 MG TAB GTB (21:48)
[2018-04-14] MEDS: LORAZEPAM 0.5 MG TAB GTB (23:08)
[2018-04-15] MEDS: LEVOFLOXACIN 500 MG TAB PO (05:22)
[2018-04-15] MEDS: MIDODRINE 5 MG TAB GTB ×4 (05:23→23:26)
[2018-04-15 06:49] LABS: ADD MAN DIFF? NO
[2018-04-15 06:56] LABS: BASOPHILS % 0.4 % (0.0-2.0); EOSINOPHILS # 1.4 10^3/ul (0.0-0.5); EOSINOPHILS % 13.8 % (0.0-7.0); HEMATOCRIT 23.6 % (42.0-52.0); HEMOGLOBIN 7.4 g/dl (14.0-18.0); LYMPHOCYTES # 2.1 10^3/ul (0.8-2.9); LYMPHOCYTES % 20.7 % (15.0-51.0); MEAN CORPUSCULAR HGB CONC 31.4 g/dl (32.0-37.0); MEAN CORPUSCULAR VOLUME 89.4 fl (82.0-101.0); MONOCYTE # 0.9 10^3/ul (0.3-0.9); MONOCYTES % 8.8 % (0.0-11.0); NEUTROPHIL # 5.5 10^3/ul (1.6-7.5); NEUTROPHILS % 54.6 % (39.0-77.0); PLATELET COUNT 336 10^3/UL (140-415); RED BLOOD COUNT 2.64 10^6/ul (4.70-6.10)
[2018-04-15 06:56] LABS: WHITE BLOOD COUNT 10.1 10^3/ul (4.8-10.8)
[2018-04-15 07:31] LABS: ANION GAP 2 (5-13); BLOOD UREA NITROGEN 26 mg/dl (7-20); CALCIUM 9.8 mg/dl (8.4-10.2); CARBON DIOXIDE 31 mmol/L (21-31); CHLORIDE 99 mmol/L (97-110); CREATININE 0.74 mg/dl (0.61-1.24); GLUCOSE 74 mg/dl (70-220); POTASSIUM 4.4 mmol/L (3.5-5.1); SODIUM 132 mmol/L (135-144)
[2018-04-15] MEDS: ALBUTEROL/IPRATROPIUM (NEB) 3 ML AMP HHN ×3 (07:53→19:25)
[2018-04-15] MEDS: DOCUSATE SODIUM 10 MG/ML (10ML CUP) GTB (09:21)
[2018-04-15] MEDS: ASCORBIC ACID 500 MG TAB GTB (09:21)
[2018-04-15] MEDS: GUAIFENESIN/DM (SR) TAB PO ×2 (09:21→20:56)
[2018-04-15] MEDS: ASPIRIN 81 MG TAB GTB (09:21)
[2018-04-15] MEDS: LACTOBACILLUS RHAMNOSUS CAP GTB ×2 (09:21→20:55)
[2018-04-15] MEDS: VALPROIC ACID LIQUID CUP 250 MG/5 ML CUP GTB ×3 (09:21→20:55)
[2018-04-15] MEDS: COLLAGENASE 5 GM (UD JAR) TOP (09:22)
[2018-04-15] MEDS: ENOXAPARIN 30 MG/0.3 ML SYG SC (10:09)
[2018-04-15 11:57] LABS: IMMEDIATE SPIN CROSSMATCH 1 1
[2018-04-15 19:47] LABS: OCCULT BLOOD STOOL POSITIVE (NEGATIVE)
[2018-04-15] MEDS: FAMOTIDINE 20 MG TAB GTB (20:55)
[2018-04-15] MEDS: traZODone 50 MG TAB GTB (20:56)
[2018-04-15] MEDS: BISACODYL 10 MG SUPP PR (23:25)
[2018-04-15] MEDS: LORAZEPAM 0.5 MG TAB GTB (23:26)
[2018-04-15] MEDS: LEVALBUTEROL (NEB) 1.25 MG/0.5 ML AMP INH (23:48)
[2018-04-16] MEDS: PANTOPRAZOLE 40 MG INJ IV (05:27)
[2018-04-16] MEDS: LEVOFLOXACIN 500 MG TAB PO (05:27)
[2018-04-16] MEDS: MIDODRINE 5 MG TAB GTB ×4 (05:28→23:09)
[2018-04-16 06:08] LABS: ADD MAN DIFF? NO
[2018-04-16 06:51] LABS: ANION GAP 6 (5-13); BLOOD UREA NITROGEN 27 mg/dl (7-20); CALCIUM 9.7 mg/dl (8.4-10.2); CARBON DIOXIDE 30 mmol/L (21-31); CHLORIDE 96 mmol/L (97-110); CREATININE 0.76 mg/dl (0.61-1.24); GLUCOSE 98 mg/dl (70-220); POTASSIUM 4.3 mmol/L (3.5-5.1); SODIUM 132 mmol/L (135-144)
[2018-04-16 06:58] LABS: WHITE BLOOD COUNT 11.3 10^3/ul (4.8-10.8)
[2018-04-16 06:58] LABS: BASOPHILS % 0.4 % (0.0-2.0); EOSINOPHILS # 1.2 10^3/ul (0.0-0.5); EOSINOPHILS % 10.4 % (0.0-7.0); HEMATOCRIT 26.7 % (42.0-52.0); HEMOGLOBIN 8.5 g/dl (14.0-18.0); LYMPHOCYTES # 1.5 10^3/ul (0.8-2.9); LYMPHOCYTES % 13.6 % (15.0-51.0); MEAN CORPUSCULAR HEMOGLOBIN 28.3 pg (29.0-33.0); MEAN CORPUSCULAR HGB CONC 31.8 g/dl (32.0-37.0); MONOCYTE # 0.8 10^3/ul (0.3-0.9); MONOCYTES % 6.7 % (0.0-11.0); NEUTROPHIL # 7.7 10^3/ul (1.6-7.5); NEUTROPHILS % 67.9 % (39.0-77.0); PLATELET COUNT 333 10^3/UL (140-415); RED CELL DISTRIBUTION WIDTH 15.1 % (11.5-14.5)
[2018-04-16] MEDS: ALBUTEROL/IPRATROPIUM (NEB) 3 ML AMP HHN ×3 (08:25→21:17)
[2018-04-16] MEDS: VALPROIC ACID LIQUID CUP 250 MG/5 ML CUP GTB ×3 (08:48→20:15)
[2018-04-16] MEDS: ASCORBIC ACID 500 MG TAB GTB (08:48)
[2018-04-16] MEDS: GUAIFENESIN/DM (SR) TAB PO ×2 (08:48→20:15)
[2018-04-16] MEDS: DOCUSATE SODIUM 10 MG/ML (10ML CUP) GTB (08:48)
[2018-04-16] MEDS: ASPIRIN 81 MG TAB GTB (08:48)
[2018-04-16] MEDS: LACTOBACILLUS RHAMNOSUS CAP GTB ×2 (08:48→20:15)
[2018-04-16] MEDS: COLLAGENASE 5 GM (UD JAR) TOP (08:49)
[2018-04-16] MEDS: FAMOTIDINE 20 MG TAB GTB (20:16)
[2018-04-16] MEDS: traZODone 50 MG TAB GTB (20:16)
[2018-04-16] MEDS: BISACODYL 10 MG SUPP PR (22:20)
[2018-04-16] MEDS: SOD CHLORIDE 0.9% 500 ML IV (22:20)
[2018-04-17] MEDS: PANTOPRAZOLE 40 MG INJ IV (05:29)
[2018-04-17] MEDS: LEVOFLOXACIN 500 MG TAB PO (05:30)
[2018-04-17] MEDS: MIDODRINE 5 MG TAB GTB ×4 (05:30→23:12)
[2018-04-17 07:29] LABS: ANION GAP 7 (5-13); BLOOD UREA NITROGEN 26 mg/dl (7-20); CALCIUM 9.3 mg/dl (8.4-10.2); CARBON DIOXIDE 28 mmol/L (21-31); CHLORIDE 97 mmol/L (97-110); CREATININE 0.81 mg/dl (0.61-1.24); GLUCOSE 68 mg/dl (70-220); POTASSIUM 4.3 mmol/L (3.5-5.1); SODIUM 132 mmol/L (135-144)
[2018-04-17] MEDS: ALBUTEROL/IPRATROPIUM (NEB) 3 ML AMP HHN ×3 (07:49→21:17)
[2018-04-17] MEDS: COLLAGENASE 5 GM (UD JAR) TOP (08:36)
[2018-04-17] MEDS: ASPIRIN 81 MG TAB GTB (08:37)
[2018-04-17] MEDS: DOCUSATE SODIUM 10 MG/ML (10ML CUP) GTB (08:37)
[2018-04-17] MEDS: GUAIFENESIN/DM (SR) TAB PO ×2 (08:37→20:07)
[2018-04-17] MEDS: VALPROIC ACID LIQUID CUP 250 MG/5 ML CUP GTB ×3 (08:37→20:07)
[2018-04-17] MEDS: ASCORBIC ACID 500 MG TAB GTB (08:37)
[2018-04-17] MEDS: LACTOBACILLUS RHAMNOSUS CAP GTB ×2 (08:37→20:07)
[2018-04-17] MEDS: DOXYCYCLINE 100 MG TAB PO ×2 (12:07→20:07)
[2018-04-17] MEDS: LORAZEPAM 0.5 MG TAB GTB (14:47)
[2018-04-17] MEDS: FAMOTIDINE 20 MG TAB GTB (20:07)
[2018-04-17] MEDS: traZODone 50 MG TAB GTB (20:07)
[2018-04-17] MEDS: BISACODYL 10 MG SUPP PR (22:27)
[2018-04-18] MEDS: PANTOPRAZOLE 40 MG INJ IV (05:21)
[2018-04-18] MEDS: MIDODRINE 5 MG TAB GTB ×4 (05:22→23:07)
[2018-04-18] MEDS: LEVOFLOXACIN 500 MG TAB PO (05:22)
[2018-04-18 07:10] LABS: ANION GAP 3 (5-13); BLOOD UREA NITROGEN 24 mg/dl (7-20); CALCIUM 9.3 mg/dl (8.4-10.2); CARBON DIOXIDE 30 mmol/L (21-31); CHLORIDE 100 mmol/L (97-110); CREATININE 0.82 mg/dl (0.61-1.24); GLUCOSE 85 mg/dl (70-220); POTASSIUM 4.3 mmol/L (3.5-5.1); SODIUM 133 mmol/L (135-144)
[2018-04-18] MEDS: ALBUTEROL/IPRATROPIUM (NEB) 3 ML AMP HHN ×3 (08:02→21:20)
[2018-04-18] MEDS: DOCUSATE SODIUM 10 MG/ML (10ML CUP) GTB (08:04)
[2018-04-18] MEDS: ASPIRIN 81 MG TAB GTB (08:05)
[2018-04-18] MEDS: ASCORBIC ACID 500 MG TAB GTB (08:05)
[2018-04-18] MEDS: DOXYCYCLINE 100 MG TAB PO ×2 (08:05→20:09)
[2018-04-18] MEDS: GUAIFENESIN/DM (SR) TAB PO ×2 (08:05→20:09)
[2018-04-18] MEDS: LACTOBACILLUS RHAMNOSUS CAP GTB ×2 (08:05→20:09)
[2018-04-18] MEDS: VALPROIC ACID LIQUID CUP 250 MG/5 ML CUP GTB ×3 (08:05→20:09)
[2018-04-18] MEDS: COLLAGENASE 5 GM (UD JAR) TOP (08:06)
[2018-04-18] MEDS: BALSAM PERU/CASTOR OIL 60 GM TUBE TOP ×2 (20:00→20:51)
[2018-04-18] MEDS: FAMOTIDINE 20 MG TAB GTB (20:09)
[2018-04-18] MEDS: traZODone 50 MG TAB GTB (20:09)
[2018-04-18] MEDS: BISACODYL 10 MG SUPP PR (22:18)
[2018-04-19] MEDS: MIDODRINE 5 MG TAB GTB ×4 (05:07→23:23)
[2018-04-19] MEDS: LEVOFLOXACIN 500 MG TAB PO (05:07)
[2018-04-19] MEDS: PANTOPRAZOLE 40 MG INJ IV (05:07)
[2018-04-19] MEDS: GUAIFENESIN/DM (SR) TAB PO ×2 (08:10→20:41)
[2018-04-19] MEDS: DOCUSATE SODIUM 10 MG/ML (10ML CUP) GTB (08:10)
[2018-04-19] MEDS: DOXYCYCLINE 100 MG TAB PO ×2 (08:10→20:41)
[2018-04-19] MEDS: LACTOBACILLUS RHAMNOSUS CAP GTB ×2 (08:10→23:03)
[2018-04-19] MEDS: BALSAM PERU/CASTOR OIL 60 GM TUBE TOP (08:10)
[2018-04-19] MEDS: VALPROIC ACID LIQUID CUP 250 MG/5 ML CUP GTB ×3 (08:10→20:41)
[2018-04-19] MEDS: ASPIRIN 81 MG TAB GTB (08:10)
[2018-04-19] MEDS: ASCORBIC ACID 500 MG TAB GTB (08:10)
[2018-04-19] MEDS: ALBUTEROL/IPRATROPIUM (NEB) 3 ML AMP HHN ×3 (08:27→19:35)
[2018-04-19 08:49] LABS: ADD MAN DIFF? NO
[2018-04-19 08:55] LABS: WHITE BLOOD COUNT 10.1 10^3/ul (4.8-10.8)
[2018-04-19 08:55] LABS: BASOPHIL # 0.1 10^3/ul (0.0-0.1); BASOPHILS % 0.8 % (0.0-2.0); EOSINOPHILS # 1.4 10^3/ul (0.0-0.5); EOSINOPHILS % 13.6 % (0.0-7.0); HEMATOCRIT 27.7 % (42.0-52.0); HEMOGLOBIN 8.8 g/dl (14.0-18.0); LYMPHOCYTES # 1.7 10^3/ul (0.8-2.9); LYMPHOCYTES % 16.8 % (15.0-51.0); MEAN CORPUSCULAR HEMOGLOBIN 28.5 pg (29.0-33.0); MEAN CORPUSCULAR HGB CONC 31.8 g/dl (32.0-37.0); MEAN CORPUSCULAR VOLUME 89.6 fl (82.0-101.0); MEAN PLATELET VOLUME 9.7 fl (7.4-10.4); MONOCYTE # 0.9 10^3/ul (0.3-0.9); MONOCYTES % 8.4 % (0.0-11.0); NEUTROPHIL # 5.9 10^3/ul (1.6-7.5); NEUTROPHILS % 58.3 % (39.0-77.0); PLATELET COUNT 342 10^3/UL (140-415); RED BLOOD COUNT 3.09 10^6/ul (4.70-6.10); RED CELL DISTRIBUTION WIDTH 15.3 % (11.5-14.5)
[2018-04-19] MEDS: FAMOTIDINE 20 MG TAB GTB (20:41)
[2018-04-19] MEDS: traZODone 50 MG TAB GTB (20:41)
[2018-04-19] MEDS: BISACODYL 10 MG SUPP PR (23:03)
[2018-04-20] MEDS: PANTOPRAZOLE 40 MG INJ IV (05:50)
[2018-04-20] MEDS: MIDODRINE 5 MG TAB GTB ×3 (05:51→17:51)
[2018-04-20] MEDS: LEVOFLOXACIN 500 MG TAB PO (05:51)
[2018-04-20 07:17] LABS: VALPROATE 21 ug/ml (50-100)
[2018-04-20] MEDS: ASCORBIC ACID 500 MG TAB GTB (08:18)
[2018-04-20] MEDS: DOCUSATE SODIUM 10 MG/ML (10ML CUP) GTB (08:18)
[2018-04-20] MEDS: ASPIRIN 81 MG TAB GTB (08:18)
[2018-04-20] MEDS: LACTOBACILLUS RHAMNOSUS CAP GTB (08:18)
[2018-04-20] MEDS: DOXYCYCLINE 100 MG TAB PO (08:18)
[2018-04-20] MEDS: VALPROIC ACID LIQUID CUP 250 MG/5 ML CUP GTB ×2 (08:18→12:52)
[2018-04-20] MEDS: BALSAM PERU/CASTOR OIL 60 GM TUBE TOP (08:19)
[2018-04-20] MEDS: GUAIFENESIN/DM (SR) TAB PO (08:19)
[2018-04-20] MEDS: ALBUTEROL/IPRATROPIUM (NEB) 3 ML AMP HHN ×2 (09:00→13:42)
== END 2018-04-20 20:00 | DRG 871 ==
LOC: TEL 04-02 21:03 → E/R 17:59 → TEL 20:29
PROVIDERS: Internal Medicine
PROC: 30233N1 Transfusion of Nonautologous Red Blood Cells into Peripheral Vein, Percutaneous Approach (ICD-10-PCS; principal; 2018-04-05)
DX: A41.9 Sepsis, unspecified organism (principal); J96.01 Acute respiratory failure with hypoxia; J18.9 Pneumonia, unspecified organism; G93.40 Encephalopathy, unspecified; E44.1 Mild protein-calorie malnutrition; Z68.1 Body mass index [BMI] 19.9 or less, adult; N17.9 Acute kidney failure, unspecified; L02.415 Cutaneous abscess of right lower limb; R65.20 Severe sepsis without septic shock; I25.10 Atherosclerotic heart disease of native coronary artery without angina pectoris; Z95.1 Presence of aortocoronary bypass graft; N40.0 Benign prostatic hyperplasia without lower urinary tract symptoms; R13.10 Dysphagia, unspecified; Z93.1 Gastrostomy status; G20 Parkinson's disease; F02.80 Dementia in other diseases classified elsewhere, unspecified severity, without behavioral disturbance, psychotic disturbance, mood disturbance, and anxiety; I12.9 Hypertensive chronic kidney disease with stage 1 through stage 4 chronic kidney disease, or unspecified chronic kidney disease; N18.9 Chronic kidney disease, unspecified; N13.9 Obstructive and reflux uropathy, unspecified; I73.9 Peripheral vascular disease, unspecified; Z66 Do not resuscitate; T85.79XD Infection and inflammatory reaction due to other internal prosthetic devices, implants and grafts, subsequent encounter; Y71.8 Miscellaneous cardiovascular devices associated with adverse incidents, not elsewhere classified
CPT/HCPCS: 36415; 36430; 36600; 71045; 74177; 76536; 80048; 80053; 80164; 80202; 81001; 82270; 82565; 82803; 83605; 83735; 84100; 84443; 84484; 84520; 85025; 85610; 85730; 86850; 86900; 86901; 86920; 87040; 87070; 87081; 87086; 87400; 90686; 93005; 93306; 94640; 94664; 96374; 96375; 99291-25

== ENCOUNTER 2018-05-09 10:15 | Inpatient (IN) | payer MEDICARE, OTHER ==
[2018-05-09] MEDS ORDERED: ONDANSETRON 4 MG INJ IV (10:30)
[2018-05-09] MEDS ORDERED: ACETAMINOPHEN 325 MG TAB PO (10:30)
[2018-05-09 10:37] LABS: ADD MAN DIFF? NO
[2018-05-09 10:41] LABS: BASOPHILS % 0.3 % (0.0-2.0); EOSINOPHILS % 0.3 % (0.0-7.0); HEMATOCRIT 32.8 % (42.0-52.0); HEMOGLOBIN 9.9 g/dl (14.0-18.0); LYMPHOCYTES # 1.4 10^3/ul (0.8-2.9); LYMPHOCYTES % 12.5 % (15.0-51.0); MEAN CORPUSCULAR HGB CONC 30.2 g/dl (32.0-37.0); MEAN CORPUSCULAR VOLUME 92.9 fl (82.0-101.0); MEAN PLATELET VOLUME 10.3 fl (7.4-10.4); MONOCYTE # 1.1 10^3/ul (0.3-0.9); MONOCYTES % 9.3 % (0.0-11.0); NEUTROPHIL # 8.8 10^3/ul (1.6-7.5); NEUTROPHILS % 76.8 % (39.0-77.0); PLATELET COUNT 308 10^3/UL (140-415); POSITIVE DIFF @See below; RED BLOOD COUNT 3.53 10^6/ul (4.70-6.10); RED CELL DISTRIBUTION WIDTH 14.9 % (11.5-14.5)
[2018-05-09 10:41] LABS: WHITE BLOOD COUNT 11.5 10^3/ul (4.8-10.8)
[2018-05-09] MEDS: CEFEPIME 2GM/50 ML (PMX) 50 ML IVPB (10:55)
[2018-05-09] MEDS: SODIUM CHLORIDE 0.9% 1L BAG IV* (10:56)
[2018-05-09 10:58] LABS: ALANINE AMINOTRANSFERASE 31 IU/L (13-69); ALBUMIN 3.3 g/dl (3.3-4.9); ALBUMIN/GLOBULIN RATIO 0.66; ALKALINE PHOSPHATASE 163 IU/L (42-121); ANION GAP 10 (5-13); ASPARTATE AMINO TRANSFERASE 41 IU/L (15-46); BILIRUBIN,INDIRECT 0.1 mg/dl (0-1.1); BILIRUBIN,TOTAL 0.1 mg/dl (0.2-1.3); BLOOD UREA NITROGEN 63 mg/dl (7-20); CALCIUM 9.7 mg/dl (8.4-10.2); CARBON DIOXIDE 25 mmol/L (21-31); CHLORIDE 114 mmol/L (97-110); CREATININE 1.28 mg/dl (0.61-1.24); GLUCOSE 106 mg/dl (70-220); POTASSIUM 4.4 mmol/L (3.5-5.1); SODIUM 149 mmol/L (135-144); TOTAL PROTEIN 8.3 g/dl (6.1-8.1)
[2018-05-09 11:00] LABS: INR 1.03; PROTIME 13.6 Sec (11.9-14.9); PT RATIO 1.1
[2018-05-09 11:09] LABS: TROPONIN-I < 0.012 ng/ml (0.000-0.120)
[2018-05-09 11:28] LABS: ADD UMIC YES; UR ASCORBIC ACID 40 mg/dL (NEGATIVE); UR BACTERIA FEW /HPF (NONE SEEN); UR BILIRUBIN (Dip) NEGATIVE (NEGATIVE); UR BLOOD (Dip) NEGATIVE (NEGATIVE); UR CLARITY CLEAR (CLEAR); UR COLOR YELLOW (YELLOW); UR GLUCOSE (Dip) NEGATIVE (NEGATIVE); UR KETONES (Dip) NEGATIVE (NEGATIVE); UR LEUKOCYTE ESTERASE (Dip) TRACE Leu/ul (NEGATIVE); UR NITRITE (Dip) NEGATIVE (NEGATIVE); UR RBC 6 /HPF (0-5); UR SPECIFIC GRAVITY (Dip) 1.018 (1.003-1.030); UR TOTAL PROTEIN (Dip) 1+ mg/dl (NEGATIVE); UR UROBILINOGEN (Dip) NEGATIVE (NEGATIVE); UR WBC 7 /HPF (0-5)
[2018-05-09] MEDS: IPRATROPIUM (NEB) 0.5 MG/2.5 ML AMP HHN (11:45)
[2018-05-09] MEDS: ALBUTEROL 0.083% (NEB) 2.5 MG/3 ML AMP HHN (11:45)
[2018-05-09] MEDS: VANCOMYCIN 1 GM (PMX) 250 ML IVPB (11:46)
[2018-05-09 12:02] LABS: PARTIAL THROMBOPLASTIN TIME 31.5 Sec (23.0-35.0)
[2018-05-09] MEDS ORDERED: ONDANSETRON 4 MG TAB PO (13:30)
[2018-05-09] MEDS: ALBUTEROL/IPRATROPIUM (NEB) 3 ML AMP INH ×3 (13:30→20:39)
[2018-05-09] MEDS ORDERED: METOCLOPRAMIDE 5 MG TAB GTB (13:30)
[2018-05-09] MEDS: SOD CHLORIDE 0.9% 1,000 ML IV (13:59)
[2018-05-09 14:53] LABS: LACTIC ACID 2.3 mmol/L (0.5-2.0)
[2018-05-09] MEDS: BISACODYL 10 MG SUPP PR (15:14)
[2018-05-09] MEDS: FAMOTIDINE 20 MG TAB GTB (16:14)
[2018-05-09] MEDS: GUAIFENESIN LA 600 MG TABSR PO ×2 (16:14→21:50)
[2018-05-09] MEDS: LEVOFLOXACIN 500 MG TAB GTB (16:14)
[2018-05-09] MEDS: MIDODRINE 5 MG TAB GTB (17:54)
[2018-05-09] MEDS: DOXYCYCLINE GTB ×2 (17:54→22:00)
[2018-05-09] MEDS: PANTOPRAZOLE (EC) 40 MG TAB PO (17:58)
[2018-05-09 18:55] LABS: TROPONIN-I < 0.012 ng/ml (0.000-0.120)
[2018-05-09] MEDS: METOPROLOL 25 MG TAB PO (21:00)
[2018-05-09] MEDS: CEFEPIME 1GM/50 ML (PMX) 50 ML IVPB (21:49)
[2018-05-09] MEDS: VALPROIC ACID LIQUID CUP 250 MG/5 ML CUP GTB (21:50)
[2018-05-09] MEDS: FERROUS SULFATE 60 MG/ML 5ML CUP GTB (21:50)
[2018-05-09] MEDS: traZODone 50 MG TAB GTB (21:50)
[2018-05-09] MEDS: LANSOPRAZOLE 30 MG CAP GTB (21:50)
[2018-05-10] MEDS: ALBUTEROL/IPRATROPIUM (NEB) 3 ML AMP INH ×6 (00:39→20:30)
[2018-05-10 01:09] LABS: TROPONIN-I < 0.012 ng/ml (0.000-0.120)
[2018-05-10] MEDS: DEXTROSE 5%-0.45% NACL 1,000 ML IV ×2 (03:29→21:36)
[2018-05-10] MEDS: LANSOPRAZOLE 30 MG CAP GTB ×2 (05:33→17:40)
[2018-05-10] MEDS: MIDODRINE 5 MG TAB GTB ×4 (05:36→17:40)
[2018-05-10 06:14] LABS: ADD MAN DIFF? NO
[2018-05-10 06:17] LABS: WHITE BLOOD COUNT 7.5 10^3/ul (4.8-10.8)
[2018-05-10 06:17] LABS: BASOPHILS % 0.4 % (0.0-2.0); EOSINOPHILS # 0.3 10^3/ul (0.0-0.5); EOSINOPHILS % 3.9 % (0.0-7.0); HEMATOCRIT 26.8 % (42.0-52.0); LYMPHOCYTES # 0.9 10^3/ul (0.8-2.9); LYMPHOCYTES % 11.6 % (15.0-51.0); MEAN CORPUSCULAR HEMOGLOBIN 28.5 pg (29.0-33.0); MEAN CORPUSCULAR HGB CONC 29.9 g/dl (32.0-37.0); MEAN CORPUSCULAR VOLUME 95.4 fl (82.0-101.0); MEAN PLATELET VOLUME 10.4 fl (7.4-10.4); MONOCYTE # 0.7 10^3/ul (0.3-0.9); MONOCYTES % 8.6 % (0.0-11.0); NEUTROPHIL # 5.6 10^3/ul (1.6-7.5); NEUTROPHILS % 74.6 % (39.0-77.0); PLATELET COUNT 208 10^3/UL (140-415); RED BLOOD COUNT 2.81 10^6/ul (4.70-6.10); RED CELL DISTRIBUTION WIDTH 14.9 % (11.5-14.5)
[2018-05-10 06:42] LABS: ANION GAP 7 (5-13); BLOOD UREA NITROGEN 49 mg/dl (7-20); CARBON DIOXIDE 23 mmol/L (21-31); CHLORIDE 122 mmol/L (97-110); CREATININE 1.03 mg/dl (0.61-1.24); GLUCOSE 116 mg/dl (70-220); POTASSIUM 3.9 mmol/L (3.5-5.1); SODIUM 152 mmol/L (135-144)
[2018-05-10 07:06] LABS: TROPONIN-I < 0.012 ng/ml (0.000-0.120)
[2018-05-10] MEDS: METOPROLOL 25 MG TAB PO ×2 (08:12→21:00)
[2018-05-10] MEDS: DOCUSATE SODIUM 10 MG/ML (10ML CUP) GTB (08:12)
[2018-05-10] MEDS: BISACODYL 10 MG SUPP PR (08:13)
[2018-05-10] MEDS: GUAIFENESIN LA 600 MG TABSR PO ×2 (09:33→21:26)
[2018-05-10] MEDS: DOXYCYCLINE GTB ×2 (09:34→21:27)
[2018-05-10] MEDS: FERROUS SULFATE 60 MG/ML 5ML CUP GTB ×2 (09:34→21:27)
[2018-05-10] MEDS: ASPIRIN 81 MG TAB GTB (09:34)
[2018-05-10] MEDS: ASCORBIC ACID 500 MG TAB GTB (09:34)
[2018-05-10] MEDS: CEFEPIME 1GM/50 ML (PMX) 50 ML IVPB ×2 (09:34→21:27)
[2018-05-10] MEDS: FAMOTIDINE 20 MG TAB GTB (09:34)
[2018-05-10] MEDS: VALPROIC ACID LIQUID CUP 250 MG/5 ML CUP GTB ×3 (09:34→21:27)
[2018-05-10] MEDS: FUROSEMIDE 40 MG INJ IV (16:00)
[2018-05-10] MEDS: LACTOBACILLUS RHAMNOSUS CAP PO (21:26)
[2018-05-10] MEDS: traZODone 50 MG TAB GTB (21:27)
[2018-05-10] MEDS: GUAIFENESIN/DM 5ML CUP PO (23:03)
[2018-05-11] MEDS: ALBUTEROL/IPRATROPIUM (NEB) 3 ML AMP INH ×6 (01:23→20:36)
[2018-05-11] MEDS: LANSOPRAZOLE 30 MG CAP GTB ×2 (05:25→17:49)
[2018-05-11] MEDS: MIDODRINE 5 MG TAB GTB ×4 (05:25→17:49)
[2018-05-11 06:15] LABS: ADD MAN DIFF? NO
[2018-05-11 06:28] LABS: BASOPHILS % 0.5 % (0.0-2.0); EOSINOPHILS # 0.6 10^3/ul (0.0-0.5); EOSINOPHILS % 10.6 % (0.0-7.0); HEMATOCRIT 25.1 % (42.0-52.0); HEMOGLOBIN 7.3 g/dl (14.0-18.0); LYMPHOCYTES # 0.6 10^3/ul (0.8-2.9); LYMPHOCYTES % 11.1 % (15.0-51.0); MEAN CORPUSCULAR HEMOGLOBIN 27.5 pg (29.0-33.0); MEAN CORPUSCULAR HGB CONC 29.1 g/dl (32.0-37.0); MEAN CORPUSCULAR VOLUME 94.7 fl (82.0-101.0); MEAN PLATELET VOLUME 10.3 fl (7.4-10.4); MONOCYTE # 0.5 10^3/ul (0.3-0.9); MONOCYTES % 8.3 % (0.0-11.0); NEUTROPHIL # 3.9 10^3/ul (1.6-7.5); NEUTROPHILS % 68.3 % (39.0-77.0); PLATELET COUNT 210 10^3/UL (140-415); RED BLOOD COUNT 2.65 10^6/ul (4.70-6.10); RED CELL DISTRIBUTION WIDTH 14.8 % (11.5-14.5)
[2018-05-11 06:28] LABS: WHITE BLOOD COUNT 5.8 10^3/ul (4.8-10.8)
[2018-05-11 07:04] LABS: ANION GAP 6 (5-13); BLOOD UREA NITROGEN 39 mg/dl (7-20); CALCIUM 9.1 mg/dl (8.4-10.2); CARBON DIOXIDE 25 mmol/L (21-31); CHLORIDE 118 mmol/L (97-110); CREATININE 0.86 mg/dl (0.61-1.24); GLUCOSE 99 mg/dl (70-220); POTASSIUM 3.4 mmol/L (3.5-5.1); SODIUM 149 mmol/L (135-144)
[2018-05-11] MEDS: METOPROLOL 25 MG TAB PO ×2 (09:00→21:00)
[2018-05-11] MEDS: FUROSEMIDE 40 MG INJ IV (09:00)
[2018-05-11] MEDS: GUAIFENESIN LA 600 MG TABSR PO ×3 (09:00→21:22)
[2018-05-11] MEDS: BISACODYL 10 MG SUPP PR (09:00)
[2018-05-11] MEDS: DOXYCYCLINE GTB ×3 (09:00→21:26)
[2018-05-11] MEDS: DOCUSATE SODIUM 10 MG/ML (10ML CUP) GTB (09:00)
[2018-05-11] MEDS: ASCORBIC ACID 500 MG TAB GTB ×2 (09:17→21:22)
[2018-05-11] MEDS: ASPIRIN 81 MG TAB GTB (09:17)
[2018-05-11] MEDS: LACTOBACILLUS RHAMNOSUS CAP PO ×2 (09:17→21:27)
[2018-05-11] MEDS: FAMOTIDINE 20 MG TAB GTB (09:17)
[2018-05-11] MEDS: CEFEPIME 1GM/50 ML (PMX) 50 ML IVPB ×2 (09:18→21:28)
[2018-05-11] MEDS: VALPROIC ACID LIQUID CUP 250 MG/5 ML CUP GTB ×3 (09:18→21:30)
[2018-05-11] MEDS: FERROUS SULFATE 60 MG/ML 5ML CUP GTB ×2 (09:18→21:22)
[2018-05-11] MEDS: GUAIFENESIN/DM 5ML CUP PO (10:24)
[2018-05-11] MEDS: MULTIVITAMINS/MINERALS TAB GTB (12:54)
[2018-05-11] MEDS ORDERED: POTASSIUM CHLORIDE (SR) 20 MEQ TAB PO (14:28)
[2018-05-11] MEDS ORDERED: EPOETIN 2000 UNITS/ML INJ (NON ESRD/NON ONCOLOGY) SC (14:30)
[2018-05-11] MEDS ORDERED: POTASSIUM CHLORIDE (1.33 MEQ/ML PO SYG) PO (14:30)
[2018-05-11] MEDS: POTASSIUM CHLORIDE 20 MEQ POWDER FOR ORAL SOLN GTB (15:00)
[2018-05-11] MEDS: EPOETIN 10000 UNITS/1 ML INJ (ESRD) SC (17:51)
[2018-05-11] MEDS: traZODone 50 MG TAB GTB (21:22)
[2018-05-12] MEDS: ALBUTEROL/IPRATROPIUM (NEB) 3 ML AMP INH ×6 (04:20→20:07)
[2018-05-12] MEDS: LANSOPRAZOLE 30 MG CAP GTB ×2 (05:51→17:28)
[2018-05-12] MEDS: MIDODRINE 5 MG TAB GTB ×4 (05:54→18:05)
[2018-05-12 06:18] LABS: ADD MAN DIFF? NO
[2018-05-12 06:29] LABS: WHITE BLOOD COUNT 5.8 10^3/ul (4.8-10.8)
[2018-05-12 06:29] LABS: BASOPHILS % 0.5 % (0.0-2.0); EOSINOPHILS # 0.6 10^3/ul (0.0-0.5); EOSINOPHILS % 10.2 % (0.0-7.0); HEMATOCRIT 26.4 % (42.0-52.0); HEMOGLOBIN 7.7 g/dl (14.0-18.0); LYMPHOCYTES % 17.6 % (15.0-51.0); MEAN CORPUSCULAR HEMOGLOBIN 27.5 pg (29.0-33.0); MEAN CORPUSCULAR HGB CONC 29.2 g/dl (32.0-37.0); MEAN CORPUSCULAR VOLUME 94.3 fl (82.0-101.0); MEAN PLATELET VOLUME 10.6 fl (7.4-10.4); MONOCYTE # 0.5 10^3/ul (0.3-0.9); MONOCYTES % 8.8 % (0.0-11.0); NEUTROPHIL # 3.6 10^3/ul (1.6-7.5); NEUTROPHILS % 61.9 % (39.0-77.0); PLATELET COUNT 228 10^3/UL (140-415); RED CELL DISTRIBUTION WIDTH 14.8 % (11.5-14.5)
[2018-05-12 07:06] LABS: ANION GAP 7 (5-13); BLOOD UREA NITROGEN 31 mg/dl (7-20); CALCIUM 9.4 mg/dl (8.4-10.2); CARBON DIOXIDE 28 mmol/L (21-31); CHLORIDE 115 mmol/L (97-110); CREATININE 0.87 mg/dl (0.61-1.24); GLUCOSE 89 mg/dl (70-220); POTASSIUM 4.1 mmol/L (3.5-5.1); SODIUM 150 mmol/L (135-144)
[2018-05-12] MEDS: METOPROLOL 25 MG TAB PO ×2 (08:57→22:28)
[2018-05-12] MEDS: FUROSEMIDE 40 MG INJ IV (08:57)
[2018-05-12] MEDS: LACTOBACILLUS RHAMNOSUS CAP PO ×2 (08:58→22:27)
[2018-05-12] MEDS: ASCORBIC ACID 500 MG TAB GTB ×2 (08:58→22:30)
[2018-05-12] MEDS: FAMOTIDINE 20 MG TAB GTB (08:58)
[2018-05-12] MEDS: GUAIFENESIN LA 600 MG TABSR PO ×2 (08:58→22:29)
[2018-05-12] MEDS: ASPIRIN 81 MG TAB GTB (08:58)
[2018-05-12] MEDS: CEFEPIME 1GM/50 ML (PMX) 50 ML IVPB ×2 (08:59→22:26)
[2018-05-12] MEDS: BISACODYL 10 MG SUPP PR (08:59)
[2018-05-12] MEDS: DOCUSATE SODIUM 10 MG/ML (10ML CUP) GTB (09:00)
[2018-05-12] MEDS: FERROUS SULFATE 60 MG/ML 5ML CUP GTB ×2 (09:00→22:29)
[2018-05-12] MEDS: MULTIVITAMINS/MINERALS TAB GTB (09:11)
[2018-05-12] MEDS: VALPROIC ACID LIQUID CUP 250 MG/5 ML CUP GTB ×3 (09:11→22:27)
[2018-05-12] MEDS ORDERED: ALTEPLASE 10 MG in SOD CHLORIDE 0.9% 100 ML IVPB (11:30)
[2018-05-12] MEDS: ALTEPLASE (CATHFLO) 2 MG INJ CATHETER (12:30)
[2018-05-12] MEDS: DOXYCYCLINE GTB ×2 (15:56→21:00)
[2018-05-12] MEDS: traZODone 50 MG TAB GTB (22:29)
[2018-05-13] MEDS: ALBUTEROL/IPRATROPIUM (NEB) 3 ML AMP INH ×6 (01:06→20:33)
[2018-05-13] MEDS: ACETAMINOPHEN 650MG/20.3ML CUP GTB (01:22)
[2018-05-13 02:33] LABS: AADO2 Arterial 316.5 mmHg (7.0-24.0); Allen Test ACCEPTAB; Arterial Base Excess 2.1 mmol/L (-3.0-3); Arterial Blood Gas Oxygen Sat 94.1 mmHG (95.0-100.0); Arterial COHb 0.5 % (0.0-3.0); Arterial Fraction of Oxyhgb 93.4 % (93.0-99.0); Arterial HCO3 25.5 mmol/L (22.0-26.0); Arterial MetHb 0.2 % (0.0-1.5); MODE MASK - SIMPLE; Site Right Radial
[2018-05-13] MEDS ORDERED: SOD CHLORIDE 0.9% 1,000 ML IV (03:00)
[2018-05-13] MEDS: ALBUMIN HUMAN 25% 100 ML IV (03:29)
[2018-05-13] MEDS: LANSOPRAZOLE 30 MG CAP GTB ×2 (05:54→17:54)
[2018-05-13] MEDS: MIDODRINE 5 MG TAB GTB ×4 (05:54→17:54)
[2018-05-13 06:45] LABS: ADD MAN DIFF? NO
[2018-05-13 06:49] LABS: BASOPHILS % 0.4 % (0.0-2.0); EOSINOPHILS # 0.2 10^3/ul (0.0-0.5); EOSINOPHILS % 2.3 % (0.0-7.0); HEMATOCRIT 24.1 % (42.0-52.0); HEMOGLOBIN 7.1 g/dl (14.0-18.0); LYMPHOCYTES # 1.3 10^3/ul (0.8-2.9); MEAN CORPUSCULAR HEMOGLOBIN 27.4 pg (29.0-33.0); MEAN CORPUSCULAR HGB CONC 29.5 g/dl (32.0-37.0); MEAN CORPUSCULAR VOLUME 93.1 fl (82.0-101.0); MEAN PLATELET VOLUME 10.6 fl (7.4-10.4); MONOCYTE # 0.7 10^3/ul (0.3-0.9); NEUTROPHIL # 7.9 10^3/ul (1.6-7.5); NEUTROPHILS % 76.4 % (39.0-77.0); PLATELET COUNT 229 10^3/UL (140-415); RED BLOOD COUNT 2.59 10^6/ul (4.70-6.10); RED CELL DISTRIBUTION WIDTH 14.9 % (11.5-14.5)
[2018-05-13 06:49] LABS: WHITE BLOOD COUNT 10.3 10^3/ul (4.8-10.8)
[2018-05-13 07:11] LABS: ANION GAP 7 (5-13); BLOOD UREA NITROGEN 29 mg/dl (7-20); CALCIUM 9.4 mg/dl (8.4-10.2); CARBON DIOXIDE 26 mmol/L (21-31); CHLORIDE 111 mmol/L (97-110); CREATININE 0.96 mg/dl (0.61-1.24); GLUCOSE 77 mg/dl (70-220); POTASSIUM 3.8 mmol/L (3.5-5.1); SODIUM 144 mmol/L (135-144)
[2018-05-13 07:26] LABS: D-DIMER 5091.27 ng/ml (<460)
[2018-05-13] MEDS: FUROSEMIDE 40 MG INJ IV (09:00)
[2018-05-13] MEDS: METOPROLOL 25 MG TAB PO ×2 (09:00→20:56)
[2018-05-13] MEDS: CEFEPIME 1GM/50 ML (PMX) 50 ML IVPB (09:01)
[2018-05-13] MEDS: ASCORBIC ACID 500 MG TAB GTB ×2 (09:02→20:51)
[2018-05-13] MEDS: DOCUSATE SODIUM 10 MG/ML (10ML CUP) GTB (09:02)
[2018-05-13] MEDS: BISACODYL 10 MG SUPP PR (09:02)
[2018-05-13] MEDS: LACTOBACILLUS RHAMNOSUS CAP PO ×2 (09:02→20:51)
[2018-05-13] MEDS: FAMOTIDINE 20 MG TAB GTB (09:02)
[2018-05-13] MEDS: VALPROIC ACID LIQUID CUP 250 MG/5 ML CUP GTB ×3 (09:02→20:50)
[2018-05-13] MEDS: ASPIRIN 81 MG TAB GTB (09:02)
[2018-05-13] MEDS: FERROUS SULFATE 60 MG/ML 5ML CUP GTB ×2 (09:02→20:50)
[2018-05-13] MEDS: ENOXAPARIN 40 MG/0.4 ML SYG SC (09:09)
[2018-05-13] MEDS: MULTIVITAMINS/MINERALS TAB GTB (10:02)
[2018-05-13] MEDS: GUAIFENESIN LA 600 MG TABSR PO ×2 (10:02→20:51)
[2018-05-13] MEDS ORDERED: VANCOMYCIN IV PER PHARMACY XX (11:00)
[2018-05-13] MEDS: MEROPENEM 1 GM/50ML(PMX) 50 ML IVPB ×2 (11:27→20:51)
[2018-05-13] MEDS: VANCOMYCIN HCL 1.25 GM in SOD CHLORIDE 0.9% 250 ML IVPB (12:21)
[2018-05-13 15:49] LABS: IMMEDIATE SPIN CROSSMATCH 1 1
[2018-05-13 20:08] LABS: OCCULT BLOOD STOOL POSITIVE (NEGATIVE)
[2018-05-13] MEDS: traZODone 50 MG TAB GTB (20:56)
[2018-05-14] MEDS: ALBUTEROL/IPRATROPIUM (NEB) 3 ML AMP INH ×6 (00:46→20:39)
[2018-05-14] MEDS: MIDODRINE 5 MG TAB GTB ×4 (05:29→17:13)
[2018-05-14] MEDS: LANSOPRAZOLE 30 MG CAP GTB ×2 (05:29→17:13)
[2018-05-14 06:21] LABS: ADD MAN DIFF? NO
[2018-05-14 06:26] LABS: WHITE BLOOD COUNT 8.2 10^3/ul (4.8-10.8)
[2018-05-14 06:26] LABS: BASOPHILS % 0.4 % (0.0-2.0); EOSINOPHILS # 0.5 10^3/ul (0.0-0.5); EOSINOPHILS % 6.4 % (0.0-7.0); HEMATOCRIT 30.1 % (42.0-52.0); HEMOGLOBIN 9.1 g/dl (14.0-18.0); LYMPHOCYTES % 12.7 % (15.0-51.0); MEAN CORPUSCULAR HEMOGLOBIN 27.8 pg (29.0-33.0); MEAN CORPUSCULAR HGB CONC 30.2 g/dl (32.0-37.0); MEAN PLATELET VOLUME 10.2 fl (7.4-10.4); MONOCYTE # 0.6 10^3/ul (0.3-0.9); MONOCYTES % 6.7 % (0.0-11.0); NEUTROPHIL # 5.9 10^3/ul (1.6-7.5); NEUTROPHILS % 72.5 % (39.0-77.0); PLATELET COUNT 216 10^3/UL (140-415); RED BLOOD COUNT 3.27 10^6/ul (4.70-6.10); RED CELL DISTRIBUTION WIDTH 14.6 % (11.5-14.5)
[2018-05-14 06:55] LABS: ANION GAP 7 (5-13); BLOOD UREA NITROGEN 30 mg/dl (7-20); CALCIUM 9.4 mg/dl (8.4-10.2); CARBON DIOXIDE 28 mmol/L (21-31); CHLORIDE 110 mmol/L (97-110); GLUCOSE 83 mg/dl (70-220); POTASSIUM 3.8 mmol/L (3.5-5.1); SODIUM 145 mmol/L (135-144)
[2018-05-14] MEDS: FERROUS SULFATE 60 MG/ML 5ML CUP GTB ×2 (08:56→22:16)
[2018-05-14] MEDS: VALPROIC ACID LIQUID CUP 250 MG/5 ML CUP GTB ×3 (08:56→22:15)
[2018-05-14] MEDS: ASCORBIC ACID 500 MG TAB GTB ×2 (08:57→22:16)
[2018-05-14] MEDS: GUAIFENESIN LA 600 MG TABSR PO ×2 (08:57→21:00)
[2018-05-14] MEDS: FAMOTIDINE 20 MG TAB GTB (08:57)
[2018-05-14] MEDS: MULTIVITAMINS/MINERALS TAB GTB (08:57)
[2018-05-14] MEDS: LACTOBACILLUS RHAMNOSUS CAP PO ×2 (08:57→21:00)
[2018-05-14] MEDS: DOCUSATE SODIUM 10 MG/ML (10ML CUP) GTB (08:57)
[2018-05-14] MEDS: ASPIRIN 81 MG TAB GTB (08:57)
[2018-05-14] MEDS: BISACODYL 10 MG SUPP PR (08:57)
[2018-05-14] MEDS: FUROSEMIDE 40 MG INJ IV (08:58)
[2018-05-14] MEDS: METOPROLOL 25 MG TAB PO ×2 (08:59→22:19)
[2018-05-14] MEDS: MEROPENEM 1 GM/50ML(PMX) 50 ML IVPB ×2 (08:59→22:16)
[2018-05-14] MEDS: ENOXAPARIN 40 MG/0.4 ML SYG SC (09:13)
[2018-05-14] MEDS: VANCOMYCIN 750 MG (PMX) 250 ML IVPB (13:00)
[2018-05-14] MEDS: traZODone 50 MG TAB GTB (22:16)
[2018-05-15] MEDS: ALBUTEROL/IPRATROPIUM (NEB) 3 ML AMP INH ×6 (00:51→21:31)
[2018-05-15] MEDS: MIDODRINE 5 MG TAB GTB ×4 (06:00→17:17)
[2018-05-15] MEDS: LANSOPRAZOLE 30 MG CAP GTB ×2 (06:50→17:16)
[2018-05-15] MEDS: ASPIRIN 81 MG TAB GTB (08:28)
[2018-05-15] MEDS: LACTOBACILLUS RHAMNOSUS CAP PO ×2 (08:28→20:36)
[2018-05-15] MEDS: VALPROIC ACID LIQUID CUP 250 MG/5 ML CUP GTB (08:28)
[2018-05-15] MEDS: MULTIVITAMINS/MINERALS TAB GTB (08:28)
[2018-05-15] MEDS: FAMOTIDINE 20 MG TAB GTB (08:28)
[2018-05-15] MEDS: ASCORBIC ACID 500 MG TAB GTB ×2 (08:28→20:37)
[2018-05-15] MEDS: FERROUS SULFATE 60 MG/ML 5ML CUP GTB ×2 (08:28→20:36)
[2018-05-15] MEDS: DOCUSATE SODIUM 10 MG/ML (10ML CUP) GTB (08:28)
[2018-05-15] MEDS: FUROSEMIDE 40 MG INJ IV (08:29)
[2018-05-15] MEDS: METOPROLOL 25 MG TAB PO ×2 (08:30→20:37)
[2018-05-15] MEDS: MEROPENEM 1 GM/50ML(PMX) 50 ML IVPB ×2 (08:30→20:37)
[2018-05-15] MEDS: BISACODYL 10 MG SUPP PR (08:31)
[2018-05-15] MEDS: ENOXAPARIN 40 MG/0.4 ML SYG SC (08:39)
[2018-05-15] MEDS: GUAIFENESIN LA 600 MG TABSR PO ×2 (08:44→20:36)
[2018-05-15] MEDS: VANCOMYCIN 750 MG (PMX) 250 ML IVPB (14:20)
[2018-05-16] MEDS: ALBUTEROL/IPRATROPIUM (NEB) 3 ML AMP INH ×5 (01:25→20:16)
[2018-05-16] MEDS: LANSOPRAZOLE 30 MG CAP GTB ×2 (06:02→18:28)
[2018-05-16] MEDS: MIDODRINE 5 MG TAB GTB ×4 (06:03→18:28)
[2018-05-16] MEDS: METOPROLOL 25 MG TAB PO ×2 (09:00→21:19)
[2018-05-16] MEDS: GUAIFENESIN LA 600 MG TABSR PO ×2 (09:31→21:18)
[2018-05-16] MEDS: ASCORBIC ACID 500 MG TAB GTB ×2 (09:31→21:19)
[2018-05-16] MEDS: FERROUS SULFATE 60 MG/ML 5ML CUP GTB ×2 (09:31→21:18)
[2018-05-16] MEDS: ASPIRIN 81 MG TAB GTB (09:31)
[2018-05-16] MEDS: MULTIVITAMINS/MINERALS TAB GTB (09:31)
[2018-05-16] MEDS: BISACODYL 10 MG SUPP PR (09:31)
[2018-05-16] MEDS: LACTOBACILLUS RHAMNOSUS CAP PO ×2 (09:32→21:18)
[2018-05-16] MEDS: DOCUSATE SODIUM 10 MG/ML (10ML CUP) GTB (09:32)
[2018-05-16] MEDS: MEROPENEM 1 GM/50ML(PMX) 50 ML IVPB ×2 (09:35→21:24)
[2018-05-16] MEDS: ENOXAPARIN 40 MG/0.4 ML SYG SC (09:43)
[2018-05-16] MEDS: SODIUM CHLORIDE 0.45% 500 ML BAG IV* (12:30)
[2018-05-16 13:01] LABS: VANCOMYCIN,TROUGH 8.4 ug/ml (10.0-20.0)
[2018-05-16] MEDS: VANCOMYCIN 1 GM 250 ML IVPB (13:35)
[2018-05-17] MEDS: ALBUTEROL/IPRATROPIUM (NEB) 3 ML AMP INH ×6 (00:29→20:10)
[2018-05-17] MEDS: MIDODRINE 5 MG TAB GTB ×4 (05:25→18:23)
[2018-05-17] MEDS: LANSOPRAZOLE 30 MG CAP GTB ×2 (05:25→18:23)
[2018-05-17 07:56] LABS: CREATININE 0.68 mg/dl (0.61-1.24)
[2018-05-17 07:56] LABS: BLOOD UREA NITROGEN 28 mg/dl (7-20)
[2018-05-17] MEDS: BISACODYL 10 MG SUPP PR (08:25)
[2018-05-17] MEDS: MULTIVITAMINS/MINERALS TAB GTB (08:25)
[2018-05-17] MEDS: GUAIFENESIN LA 600 MG TABSR PO ×2 (08:25→21:46)
[2018-05-17] MEDS: LACTOBACILLUS RHAMNOSUS CAP PO ×2 (08:25→21:46)
[2018-05-17] MEDS: ASPIRIN 81 MG TAB GTB (08:25)
[2018-05-17] MEDS: ASCORBIC ACID 500 MG TAB GTB ×2 (08:26→21:46)
[2018-05-17] MEDS: MEROPENEM 1 GM/50ML(PMX) 50 ML IVPB ×2 (08:26→21:47)
[2018-05-17] MEDS: FERROUS SULFATE 60 MG/ML 5ML CUP GTB ×2 (08:26→21:46)
[2018-05-17] MEDS: DOCUSATE SODIUM 10 MG/ML (10ML CUP) GTB (08:26)
[2018-05-17] MEDS: ENOXAPARIN 40 MG/0.4 ML SYG SC (08:41)
[2018-05-17] MEDS ORDERED: VANCOMYCIN 1 GM 250 ML IVPB (09:00)
[2018-05-17] MEDS: METOPROLOL 25 MG TAB PO ×2 (09:00→21:47)
[2018-05-17] MEDS: VANCOMYCIN 1 GM 250 ML IVPB (15:53)
[2018-05-17] MEDS: LORAZEPAM 0.5 MG TAB GTB (23:00)
[2018-05-18] MEDS: ALBUTEROL/IPRATROPIUM (NEB) 3 ML AMP INH ×6 (00:52→20:25)
[2018-05-18] MEDS: LANSOPRAZOLE 30 MG CAP GTB ×2 (06:15→18:13)
[2018-05-18] MEDS: MIDODRINE 5 MG TAB GTB ×4 (06:15→18:13)
[2018-05-18 07:52] LABS: ADD MAN DIFF? NO
[2018-05-18 07:54] LABS: WHITE BLOOD COUNT 9.4 10^3/ul (4.8-10.8)
[2018-05-18 07:54] LABS: BASOPHIL # 0.1 10^3/ul (0.0-0.1); BASOPHILS % 0.5 % (0.0-2.0); EOSINOPHILS # 0.5 10^3/ul (0.0-0.5); EOSINOPHILS % 5.6 % (0.0-7.0); HEMATOCRIT 30.1 % (42.0-52.0); HEMOGLOBIN 9.3 g/dl (14.0-18.0); LYMPHOCYTES # 1.2 10^3/ul (0.8-2.9); LYMPHOCYTES % 12.8 % (15.0-51.0); MEAN CORPUSCULAR HEMOGLOBIN 28.9 pg (29.0-33.0); MEAN CORPUSCULAR HGB CONC 30.9 g/dl (32.0-37.0); MEAN CORPUSCULAR VOLUME 93.5 fl (82.0-101.0); MEAN PLATELET VOLUME 9.9 fl (7.4-10.4); MONOCYTE # 0.9 10^3/ul (0.3-0.9); MONOCYTES % 9.7 % (0.0-11.0); NEUTROPHIL # 6.6 10^3/ul (1.6-7.5); NEUTROPHILS % 69.9 % (39.0-77.0); PLATELET COUNT 261 10^3/UL (140-415); RED BLOOD COUNT 3.22 10^6/ul (4.70-6.10)
[2018-05-18 08:20] LABS: ANION GAP 7 (5-13); BLOOD UREA NITROGEN 29 mg/dl (7-20); CALCIUM 9.5 mg/dl (8.4-10.2); CARBON DIOXIDE 30 mmol/L (21-31); CHLORIDE 102 mmol/L (97-110); CREATININE 0.63 mg/dl (0.61-1.24); GLUCOSE 112 mg/dl (70-220); POTASSIUM 4.1 mmol/L (3.5-5.1); SODIUM 139 mmol/L (135-144)
[2018-05-18] MEDS: METOPROLOL 25 MG TAB PO ×2 (09:00→20:09)
[2018-05-18] MEDS: DOCUSATE SODIUM 10 MG/ML (10ML CUP) GTB (09:36)
[2018-05-18] MEDS: FERROUS SULFATE 60 MG/ML 5ML CUP GTB ×2 (09:36→20:07)
[2018-05-18] MEDS: MEROPENEM 1 GM/50ML(PMX) 50 ML IVPB ×2 (09:36→20:08)
[2018-05-18] MEDS: MULTIVITAMINS/MINERALS TAB GTB (09:37)
[2018-05-18] MEDS: GUAIFENESIN LA 600 MG TABSR PO ×2 (09:38→20:07)
[2018-05-18] MEDS: ASPIRIN 81 MG TAB GTB (09:38)
[2018-05-18] MEDS: LACTOBACILLUS RHAMNOSUS CAP PO ×2 (09:38→20:07)
[2018-05-18] MEDS: BISACODYL 10 MG SUPP PR (09:38)
[2018-05-18] MEDS: ASCORBIC ACID 500 MG TAB GTB ×2 (09:38→20:08)
[2018-05-18] MEDS: ENOXAPARIN 40 MG/0.4 ML SYG SC (09:41)
[2018-05-18] MEDS: VANCOMYCIN 1 GM 250 ML IVPB (14:23)
[2018-05-18] MEDS: SOD CHLORIDE 0.9% 500 ML IV (17:29)
[2018-05-19] MEDS: ALBUTEROL/IPRATROPIUM (NEB) 3 ML AMP INH ×6 (00:24→20:32)
[2018-05-19] MEDS: LORAZEPAM 0.5 MG TAB GTB (02:01)
[2018-05-19] MEDS: LANSOPRAZOLE 30 MG CAP GTB ×2 (05:25→17:43)
[2018-05-19] MEDS: MIDODRINE 5 MG TAB GTB ×4 (05:25→17:43)
[2018-05-19] MEDS: FERROUS SULFATE 60 MG/ML 5ML CUP GTB ×2 (08:59→20:05)
[2018-05-19] MEDS: DOCUSATE SODIUM 10 MG/ML (10ML CUP) GTB (08:59)
[2018-05-19] MEDS: ASPIRIN 81 MG TAB GTB (09:00)
[2018-05-19] MEDS: METOPROLOL 25 MG TAB PO ×2 (09:00→20:06)
[2018-05-19] MEDS: ASCORBIC ACID 500 MG TAB GTB ×2 (09:00→20:05)
[2018-05-19] MEDS: MULTIVITAMINS/MINERALS TAB GTB (09:00)
[2018-05-19] MEDS: MEROPENEM 1 GM/50ML(PMX) 50 ML IVPB ×2 (09:00→20:05)
[2018-05-19] MEDS: BISACODYL 10 MG SUPP PR (09:00)
[2018-05-19] MEDS: GUAIFENESIN LA 600 MG TABSR PO ×2 (09:00→20:14)
[2018-05-19] MEDS: LACTOBACILLUS RHAMNOSUS CAP PO ×2 (09:00→20:05)
[2018-05-19] MEDS: ENOXAPARIN 40 MG/0.4 ML SYG SC (09:07)
[2018-05-19] MEDS: VANCOMYCIN 1 GM 250 ML IVPB (12:37)
[2018-05-20] MEDS: ALBUTEROL/IPRATROPIUM (NEB) 3 ML AMP INH ×9 (01:18→21:00)
[2018-05-20] MEDS: LANSOPRAZOLE 30 MG CAP GTB ×2 (05:30→17:33)
[2018-05-20] MEDS: LEVOFLOXACIN 250 MG TAB PO (05:31)
[2018-05-20] MEDS: MIDODRINE 5 MG TAB GTB ×4 (05:31→17:33)
[2018-05-20] MEDS: FERROUS SULFATE 60 MG/ML 5ML CUP GTB ×2 (08:35→22:26)
[2018-05-20] MEDS: MULTIVITAMINS/MINERALS TAB GTB (08:36)
[2018-05-20] MEDS: GUAIFENESIN LA 600 MG TABSR PO ×2 (08:36→22:27)
[2018-05-20] MEDS: DOCUSATE SODIUM 10 MG/ML (10ML CUP) GTB (08:36)
[2018-05-20] MEDS: BISACODYL 10 MG SUPP PR (08:36)
[2018-05-20] MEDS: LACTOBACILLUS RHAMNOSUS CAP PO ×2 (08:36→22:26)
[2018-05-20] MEDS: METOPROLOL 25 MG TAB PO ×2 (08:37→21:00)
[2018-05-20] MEDS: ASPIRIN 81 MG TAB GTB (08:37)
[2018-05-20] MEDS: ASCORBIC ACID 500 MG TAB GTB ×2 (08:38→22:26)
[2018-05-20] MEDS: DOXYCYCLINE 100 MG TAB PO (08:38)
[2018-05-20] MEDS: ENOXAPARIN 40 MG/0.4 ML SYG SC (08:52)
[2018-05-20] MEDS: LORAZEPAM 0.5 MG TAB GTB (23:23)
[2018-05-21] MEDS: ACETAMINOPHEN 650MG/20.3ML CUP GTB (04:21)
[2018-05-21] MEDS: ALBUTEROL/IPRATROPIUM (NEB) 3 ML AMP INH ×5 (04:49→20:34)
[2018-05-21] MEDS: LANSOPRAZOLE 30 MG CAP GTB ×2 (05:32→17:51)
[2018-05-21] MEDS: LEVOFLOXACIN 250 MG TAB PO (05:32)
[2018-05-21] MEDS: MIDODRINE 5 MG TAB GTB ×4 (05:32→17:52)
[2018-05-21 08:27] LABS: ADD MAN DIFF? NO
[2018-05-21 08:34] LABS: BASOPHIL # 0.1 10^3/ul (0.0-0.1); BASOPHILS % 0.5 % (0.0-2.0); EOSINOPHILS # 0.6 10^3/ul (0.0-0.5); EOSINOPHILS % 5.7 % (0.0-7.0); HEMATOCRIT 27.9 % (42.0-52.0); HEMOGLOBIN 8.6 g/dl (14.0-18.0); LYMPHOCYTES # 1.4 10^3/ul (0.8-2.9); LYMPHOCYTES % 14.3 % (15.0-51.0); MEAN CORPUSCULAR HEMOGLOBIN 28.6 pg (29.0-33.0); MEAN CORPUSCULAR HGB CONC 30.8 g/dl (32.0-37.0); MEAN CORPUSCULAR VOLUME 92.7 fl (82.0-101.0); MEAN PLATELET VOLUME 10.3 fl (7.4-10.4); MONOCYTE # 0.7 10^3/ul (0.3-0.9); MONOCYTES % 7.6 % (0.0-11.0); NEUTROPHIL # 6.8 10^3/ul (1.6-7.5); NEUTROPHILS % 71.1 % (39.0-77.0); PLATELET COUNT 269 10^3/UL (140-415); RED BLOOD COUNT 3.01 10^6/ul (4.70-6.10); RED CELL DISTRIBUTION WIDTH 14.9 % (11.5-14.5)
[2018-05-21 08:34] LABS: WHITE BLOOD COUNT 9.6 10^3/ul (4.8-10.8)
[2018-05-21 08:56] LABS: ANION GAP 7 (5-13); BLOOD UREA NITROGEN 24 mg/dl (7-20); CALCIUM 9.5 mg/dl (8.4-10.2); CARBON DIOXIDE 31 mmol/L (21-31); CHLORIDE 97 mmol/L (97-110); CREATININE 0.71 mg/dl (0.61-1.24); GLUCOSE 76 mg/dl (70-220); POTASSIUM 4.4 mmol/L (3.5-5.1); SODIUM 135 mmol/L (135-144)
[2018-05-21] MEDS: MULTIVITAMINS/MINERALS TAB GTB (09:28)
[2018-05-21] MEDS: ASPIRIN 81 MG TAB GTB (09:28)
[2018-05-21] MEDS: DOXYCYCLINE 100 MG TAB PO (09:28)
[2018-05-21] MEDS: FERROUS SULFATE 60 MG/ML 5ML CUP GTB ×2 (09:28→20:11)
[2018-05-21] MEDS: LACTOBACILLUS RHAMNOSUS CAP PO ×2 (09:28→20:12)
[2018-05-21] MEDS: DOCUSATE SODIUM 10 MG/ML (10ML CUP) GTB (09:28)
[2018-05-21] MEDS: GUAIFENESIN LA 600 MG TABSR PO ×2 (09:28→20:12)
[2018-05-21] MEDS: ASCORBIC ACID 500 MG TAB GTB ×2 (09:28→20:11)
[2018-05-21] MEDS: BISACODYL 10 MG SUPP PR (09:29)
[2018-05-21] MEDS: METOPROLOL 25 MG TAB PO ×2 (09:29→20:11)
[2018-05-21] MEDS: ENOXAPARIN 40 MG/0.4 ML SYG SC (09:33)
[2018-05-21] MEDS: LORAZEPAM 0.5 MG TAB GTB ×2 (15:37→23:15)
[2018-05-22] MEDS: ALBUTEROL/IPRATROPIUM (NEB) 3 ML AMP INH ×6 (00:44→20:21)
[2018-05-22] MEDS: LANSOPRAZOLE 30 MG CAP GTB ×2 (05:32→17:18)
[2018-05-22] MEDS: LEVOFLOXACIN 250 MG TAB PO (05:32)
[2018-05-22] MEDS: LORAZEPAM 0.5 MG TAB GTB ×3 (05:32→12:59)
[2018-05-22] MEDS: MIDODRINE 5 MG TAB GTB ×4 (05:33→17:18)
[2018-05-22] MEDS: METOPROLOL 25 MG TAB PO ×2 (09:00→20:04)
[2018-05-22] MEDS: ASCORBIC ACID 500 MG TAB GTB ×2 (09:49→20:05)
[2018-05-22] MEDS: FERROUS SULFATE 60 MG/ML 5ML CUP GTB ×2 (09:49→20:05)
[2018-05-22] MEDS: LACTOBACILLUS RHAMNOSUS CAP PO ×2 (09:49→20:05)
[2018-05-22] MEDS: DOCUSATE SODIUM 10 MG/ML (10ML CUP) GTB (09:50)
[2018-05-22] MEDS: MULTIVITAMINS/MINERALS TAB GTB (09:51)
[2018-05-22] MEDS: DOXYCYCLINE 100 MG TAB PO (09:51)
[2018-05-22] MEDS: GUAIFENESIN LA 600 MG TABSR PO ×2 (09:51→20:05)
[2018-05-22] MEDS: ASPIRIN 81 MG TAB GTB (09:51)
[2018-05-22] MEDS: BISACODYL 10 MG SUPP PR (09:52)
[2018-05-22] MEDS: ENOXAPARIN 40 MG/0.4 ML SYG SC (09:54)
[2018-05-22] MEDS: LORAZEPAM 2 MG INJ IV (14:42)
[2018-05-23] MEDS: ALBUTEROL/IPRATROPIUM (NEB) 3 ML AMP INH ×6 (00:54→20:07)
[2018-05-23] MEDS: LORAZEPAM 2 MG INJ IV (04:04)
[2018-05-23] MEDS: MIDODRINE 5 MG TAB GTB ×4 (05:49→18:08)
[2018-05-23] MEDS: LEVOFLOXACIN 250 MG TAB PO (05:49)
[2018-05-23] MEDS: LANSOPRAZOLE 30 MG CAP GTB ×2 (05:49→18:04)
[2018-05-23] MEDS: FERROUS SULFATE 60 MG/ML 5ML CUP GTB ×2 (08:45→21:29)
[2018-05-23] MEDS: ASPIRIN 81 MG TAB GTB (08:45)
[2018-05-23] MEDS: ASCORBIC ACID 500 MG TAB GTB ×2 (08:45→21:29)
[2018-05-23] MEDS: GUAIFENESIN LA 600 MG TABSR PO ×2 (08:46→21:29)
[2018-05-23] MEDS: METOPROLOL 25 MG TAB PO ×2 (08:46→21:00)
[2018-05-23] MEDS: BISACODYL 10 MG SUPP PR (08:46)
[2018-05-23] MEDS: DOXYCYCLINE 100 MG TAB PO (08:46)
[2018-05-23] MEDS: LACTOBACILLUS RHAMNOSUS CAP PO ×2 (08:46→21:29)
[2018-05-23] MEDS: ENOXAPARIN 40 MG/0.4 ML SYG SC (08:48)
[2018-05-23] MEDS: MULTIVITAMINS/MINERALS TAB GTB (10:54)
[2018-05-23] MEDS: DOCUSATE SODIUM 10 MG/ML (10ML CUP) GTB (10:55)
[2018-05-24] MEDS: ALBUTEROL/IPRATROPIUM (NEB) 3 ML AMP INH ×5 (00:52→17:02)
[2018-05-24] MEDS: ALTEPLASE (CATHFLO) 2 MG INJ CATHETER (04:16)
[2018-05-24] MEDS: LANSOPRAZOLE 30 MG CAP GTB (06:16)
[2018-05-24] MEDS: LEVOFLOXACIN 250 MG TAB PO (06:17)
[2018-05-24] MEDS: MIDODRINE 5 MG TAB GTB ×4 (06:17→18:33)
[2018-05-24] MEDS: GUAIFENESIN LA 600 MG TABSR PO (08:32)
[2018-05-24] MEDS: BISACODYL 10 MG SUPP PR (08:32)
[2018-05-24] MEDS: DOCUSATE SODIUM 10 MG/ML (10ML CUP) GTB (08:32)
[2018-05-24] MEDS: DOXYCYCLINE 100 MG TAB PO (08:32)
[2018-05-24] MEDS: ASCORBIC ACID 500 MG TAB GTB (08:32)
[2018-05-24] MEDS: FERROUS SULFATE 60 MG/ML 5ML CUP GTB (08:32)
[2018-05-24] MEDS: ASPIRIN 81 MG TAB GTB (08:32)
[2018-05-24] MEDS: LACTOBACILLUS RHAMNOSUS CAP PO (08:32)
[2018-05-24] MEDS: ENOXAPARIN 40 MG/0.4 ML SYG SC (08:36)
[2018-05-24] MEDS: METOPROLOL 25 MG TAB PO (08:52)
[2018-05-24] MEDS: MULTIVITAMINS/MINERALS TAB GTB (10:29)
[2018-05-24] MEDS: ACETAMINOPHEN 650MG/20.3ML CUP GTB ×2 (10:32→14:44)
== END 2018-05-24 18:50 | DRG 871 ==
LOC: 2NE 05-23 20:42 → E/R 10:15 → TEL 05-13 03:05 → PP2 10:27
PROC: 02HV33Z Insertion of Infusion Device into Superior Vena Cava, Percutaneous Approach (ICD-10-PCS; principal; 2018-05-09)
PROC: 3E0F7GC Introduction of Other Therapeutic Substance into Respiratory Tract, Via Natural or Artificial Opening (ICD-10-PCS; 2018-05-13)
DX: A41.9 Sepsis, unspecified organism (principal); J18.9 Pneumonia, unspecified organism; J96.01 Acute respiratory failure with hypoxia; E43 Unspecified severe protein-calorie malnutrition; N17.9 Acute kidney failure, unspecified; G93.40 Encephalopathy, unspecified; E87.0 Hyperosmolality and hypernatremia; I50.32 Chronic diastolic (congestive) heart failure; T82.7XXA Infection and inflammatory reaction due to other cardiac and vascular devices, implants and grafts, initial encounter; Z68.1 Body mass index [BMI] 19.9 or less, adult; J90 Pleural effusion, not elsewhere classified; Z66 Do not resuscitate; G20 Parkinson's disease; I25.10 Atherosclerotic heart disease of native coronary artery without angina pectoris; I11.0 Hypertensive heart disease with heart failure; J44.9 Chronic obstructive pulmonary disease, unspecified; G40.909 Epilepsy, unspecified, not intractable, without status epilepticus; F03.90 Unspecified dementia, unspecified severity, without behavioral disturbance, psychotic disturbance, mood disturbance, and anxiety; I73.9 Peripheral vascular disease, unspecified; F41.9 Anxiety disorder, unspecified; F02.80 Dementia in other diseases classified elsewhere, unspecified severity, without behavioral disturbance, psychotic disturbance, mood disturbance, and anxiety; R13.10 Dysphagia, unspecified; Y83.2 Surgical operation with anastomosis, bypass or graft as the cause of abnormal reaction of the patient, or of later complication, without mention of misadventure at the time of the procedure; Z93.1 Gastrostomy status; Z95.1 Presence of aortocoronary bypass graft
CPT/HCPCS: 36415; 36430; 36600; 71045; 80048; 80053; 80202; 81001; 82270; 82565; 82803; 82962; 83605; 84443; 84484; 84520; 85025; 85378; 85610; 85730; 86850; 86900; 86901; 86920; 87040; 87045; 87075; 87081; 87086; 93005; 93970; 94640; 94664; 99291-25

== ENCOUNTER 2018-06-26 08:49 | Inpatient (IN) | payer MEDICARE, OTHER ==
[2018-06-26] MEDS: SOD CHLORIDE 0.9% 1,950 ML IV (09:30)
[2018-06-26 09:33] LABS: ADD MAN DIFF? NO
[2018-06-26 09:34] LABS: ABNORMAL IP MESSAGE 1; BASOPHIL # 0.1 10^3/ul (0.0-0.1); BASOPHILS % 0.5 % (0.0-2.0); EOSINOPHILS # 0.1 10^3/ul (0.0-0.5); EOSINOPHILS % 0.3 % (0.0-7.0); HEMATOCRIT 35.9 % (42.0-52.0); HEMOGLOBIN 10.7 g/dl (14.0-18.0); LYMPHOCYTES # 1.3 10^3/ul (0.8-2.9); MEAN CORPUSCULAR HEMOGLOBIN 28.4 pg (29.0-33.0); MEAN CORPUSCULAR HGB CONC 29.8 g/dl (32.0-37.0); MEAN CORPUSCULAR VOLUME 95.2 fl (82.0-101.0); MEAN PLATELET VOLUME 10.9 fl (7.4-10.4); MONOCYTE # 2.2 10^3/ul (0.3-0.9); MONOCYTES % 10.4 % (0.0-11.0); NEUTROPHIL # 17.7 10^3/ul (1.6-7.5); NEUTROPHILS % 82.1 % (39.0-77.0); PLATELET COUNT 425 10^3/UL (140-415); POSITIVE DIFF @See below; RED BLOOD COUNT 3.77 10^6/ul (4.70-6.10); RED CELL DISTRIBUTION WIDTH 15.7 % (11.5-14.5)
[2018-06-26 09:34] LABS: WHITE BLOOD COUNT 21.5 10^3/ul (4.8-10.8)
[2018-06-26 09:54] LABS: ALANINE AMINOTRANSFERASE 34 IU/L (13-69); ALBUMIN 3.6 g/dl (3.3-4.9); ALBUMIN/GLOBULIN RATIO 0.73; ALKALINE PHOSPHATASE 258 IU/L (42-121); ANION GAP 9 (5-13); ASPARTATE AMINO TRANSFERASE 80 IU/L (15-46); BILIRUBIN,INDIRECT 0.1 mg/dl (0-1.1); BILIRUBIN,TOTAL 0.1 mg/dl (0.2-1.3); BLOOD UREA NITROGEN 74 mg/dl (7-20); CALCIUM 10.8 mg/dl (8.4-10.2); CARBON DIOXIDE 27 mmol/L (21-31); CHLORIDE 110 mmol/L (97-110); CREATININE 1.85 mg/dl (0.61-1.24); GLUCOSE 116 mg/dl (70-220); SODIUM 146 mmol/L (135-144); TOTAL PROTEIN 8.5 g/dl (6.1-8.1)
[2018-06-26 09:55] LABS: PARTIAL THROMBOPLASTIN TIME 33.2 Sec (23.0-35.0); PROTIME 14.3 Sec (11.9-14.9); PT RATIO 1.1
[2018-06-26 09:56] LABS: POTASSIUM 5.2 mmol/L (3.5-5.1)
[2018-06-26] MEDS: PIPER-TAZO 3.375 GM IV (PMX) 100 ML IVPB (10:00)
[2018-06-26 10:05] LABS: TROPONIN-I 0.047 ng/ml (0.000-0.120)
[2018-06-26] MEDS: VANCOMYCIN 1 GM (PMX) 250 ML IVPB (10:37)
[2018-06-26] MEDS: PHENYLephrine 20MG IN 250 ML 250 ML IV (11:52)
[2018-06-26] MEDS ORDERED: VANCOMYCIN IV PER PHARMACY XX (13:00)
[2018-06-26] MEDS: CEFEPIME 1GM/50 ML (PMX) 50 ML IVPB (13:13)
[2018-06-26] MEDS: metroNIDAZOLE 500 MG/NS (PMX) 100 ML IVPB ×2 (14:07→20:33)
[2018-06-26 15:04] LABS: URINE BLOOD (Dip) POC 2+ (NEGATIVE); URINE GLUCOSE (Dip) POC Negative (NEGATIVE); URINE KETONES (Dip) POC Negative (NEGATIVE); URINE LEUKOCYTE EST (Dip) POC 2+ (NEGATIVE); URINE NITRITE (Dip) POC Negative (NEGATIVE); URINE TOTAL PROTEIN POC 2+ (NEGATIVE)
[2018-06-26 15:04] LABS: URINE PH (Dip) POC 5.5 (5.0-8.5)
[2018-06-26] MEDS: NORepinephrine 8MG/250 ML (PMX 250 ML IV (15:24)
[2018-06-26 15:35] LABS: ADD UMIC YES; UR ASCORBIC ACID 40 mg/dL (NEGATIVE); UR BILIRUBIN (Dip) NEGATIVE (NEGATIVE); UR BLOOD (Dip) 2+ mg/dL (NEGATIVE); UR CLARITY CLOUDY (CLEAR); UR COLOR YELLOW (YELLOW); UR GLUCOSE (Dip) NEGATIVE (NEGATIVE); UR KETONES (Dip) NEGATIVE (NEGATIVE); UR LEUKOCYTE ESTERASE (Dip) 2+ Leu/ul (NEGATIVE); UR NITRITE (Dip) NEGATIVE (NEGATIVE); UR RBC 21 /HPF (0-5); UR SPECIFIC GRAVITY (Dip) 1.018 (1.003-1.030); UR TOTAL PROTEIN (Dip) 1+ mg/dl (NEGATIVE); UR UROBILINOGEN (Dip) NEGATIVE (NEGATIVE); UR WBC 93 /HPF (0-5)
[2018-06-26 15:50] LABS: LACTIC ACID 1.3 mmol/L (0.5-2.0)
[2018-06-26] MEDS ORDERED: ONDANSETRON 4 MG TAB PO (19:00)
[2018-06-26] MEDS ORDERED: BISACODYL (EC) 5 MG TAB PO (19:00)
[2018-06-26] MEDS: FERROUS SULFATE 60 MG/ML 5ML CUP GTB (20:33)
[2018-06-26] MEDS: ALBUTEROL/IPRATROPIUM (NEB) 3 ML AMP HHN (21:00)
[2018-06-26 21:33] LABS: AADO2 Arterial 548.2 mmHg (7.0-24.0); Allen Test ACCEPTAB; Arterial Base Excess -3.8 mmol/L (-3.0-3); Arterial Blood Gas Oxygen Sat 98.1 mmHG (95.0-100.0); Arterial COHb 0.3 % (0.0-3.0); Arterial Fraction of Oxyhgb 97.7 % (93.0-99.0); Arterial HCO3 21.5 mmol/L (22.0-26.0); Arterial MetHb 0.1 % (0.0-1.5); Arterial pCO2 39.9 mmhg (35-45); MODE MASK - NRB; Site Right Radial
[2018-06-26] MEDS: SOD CHLORIDE 0.9% 1,000 ML IV (23:00)
[2018-06-27] MEDS ORDERED: LORAZEPAM 2 MG INJ IV (00:30)
[2018-06-27] MEDS: ALBUTEROL/IPRATROPIUM (NEB) 3 ML AMP HHN ×4 (02:18→20:03)
[2018-06-27 05:26] LABS: WHITE BLOOD COUNT 10.7 10^3/ul (4.8-10.8)
[2018-06-27 05:26] LABS: ADD MAN DIFF? NO; BASOPHIL # 0.1 10^3/ul (0.0-0.1); BASOPHILS % 0.6 % (0.0-2.0); EOSINOPHILS # 0.3 10^3/ul (0.0-0.5); EOSINOPHILS % 2.9 % (0.0-7.0); HEMATOCRIT 29.9 % (42.0-52.0); HEMOGLOBIN 8.7 g/dl (14.0-18.0); LYMPHOCYTES # 0.7 10^3/ul (0.8-2.9); LYMPHOCYTES % 6.8 % (15.0-51.0); MEAN CORPUSCULAR HEMOGLOBIN 28.2 pg (29.0-33.0); MEAN CORPUSCULAR HGB CONC 29.1 g/dl (32.0-37.0); MEAN CORPUSCULAR VOLUME 97.1 fl (82.0-101.0); MEAN PLATELET VOLUME 10.8 fl (7.4-10.4); MONOCYTE # 0.7 10^3/ul (0.3-0.9); MONOCYTES % 6.4 % (0.0-11.0); NEUTROPHIL # 8.9 10^3/ul (1.6-7.5); NEUTROPHILS % 82.7 % (39.0-77.0); PLATELET COUNT 300 10^3/UL (140-415); RED BLOOD COUNT 3.08 10^6/ul (4.70-6.10); RED CELL DISTRIBUTION WIDTH 15.4 % (11.5-14.5)
[2018-06-27] MEDS: metroNIDAZOLE 500 MG/NS (PMX) 100 ML IVPB ×3 (05:37→20:14)
[2018-06-27] MEDS: LANSOPRAZOLE 30 MG CAP GTB ×2 (05:42→17:32)
[2018-06-27 05:46] LABS: ANION GAP 10 (5-13); BLOOD UREA NITROGEN 65 mg/dl (7-20); CARBON DIOXIDE 22 mmol/L (21-31); CHLORIDE 118 mmol/L (97-110); GLUCOSE 108 mg/dl (70-220); MAGNESIUM 2.4 mg/dl (1.7-2.5); PHOSPHORUS 4.3 mg/dl (2.5-4.9); POTASSIUM 3.8 mmol/L (3.5-5.1); SODIUM 150 mmol/L (135-144)
[2018-06-27 07:53] LABS: AADO2 Arterial 133.6 mmHg (7.0-24.0); Allen Test ACCEPTAB; Arterial Base Excess -2.3 mmol/L (-3.0-3); Arterial Blood Gas Oxygen Sat 95.4 mmHG (95.0-100.0); Arterial COHb 0.3 % (0.0-3.0); Arterial HCO3 22.4 mmol/L (22.0-26.0); Arterial MetHb 0.1 % (0.0-1.5); Arterial pCO2 38.1 mmhg (35-45); MODE NASAL CANNULA; Site Right Radial
[2018-06-27] MEDS: DOCUSATE SODIUM 100 MG CAP PO (09:07)
[2018-06-27] MEDS: MIDODRINE 5 MG TAB GTB ×3 (09:07→17:32)
[2018-06-27] MEDS: FERROUS SULFATE 60 MG/ML 5ML CUP GTB ×2 (09:07→20:14)
[2018-06-27] MEDS: LACTOBACILLUS RHAMNOSUS CAP GTB (09:07)
[2018-06-27] MEDS: VANCOMYCIN 500 MG (PMX) 100 ML IVPB (09:08)
[2018-06-27] MEDS: MULTIVITAMINS 30 ML CUP GTB (09:08)
[2018-06-27] MEDS: ASPIRIN 81 MG TAB GTB (09:08)
[2018-06-27] MEDS: CEFEPIME 1GM/50 ML (PMX) 50 ML IVPB (13:02)
[2018-06-27] MEDS: SOD CHLORIDE 0.9% 1,000 ML IV (20:15)
[2018-06-28] MEDS: LORAZEPAM 0.5 MG TAB GTB ×2 (00:52→13:50)
[2018-06-28] MEDS: ALBUTEROL/IPRATROPIUM (NEB) 3 ML AMP HHN ×4 (02:00→20:22)
[2018-06-28] MEDS: LANSOPRAZOLE 30 MG CAP GTB ×2 (05:54→16:56)
[2018-06-28] MEDS: metroNIDAZOLE 500 MG/NS (PMX) 100 ML IVPB (05:54)
[2018-06-28] MEDS: NORepinephrine 8MG/250 ML (PMX 250 ML IV (05:58)
[2018-06-28] MEDS: ASPIRIN 81 MG TAB GTB (08:51)
[2018-06-28] MEDS: FERROUS SULFATE 60 MG/ML 5ML CUP GTB ×2 (08:51→20:38)
[2018-06-28] MEDS: MULTIVITAMINS 30 ML CUP GTB (08:51)
[2018-06-28] MEDS: LACTOBACILLUS RHAMNOSUS CAP GTB (08:52)
[2018-06-28] MEDS: DOCUSATE SODIUM 100 MG CAP PO (08:52)
[2018-06-28] MEDS: MIDODRINE 5 MG TAB GTB ×3 (08:52→16:54)
[2018-06-28 10:40] LABS: AADO2 Arterial 105.4 mmHg (7.0-24.0); Allen Test ACCEPTAB; Arterial Base Excess 0.1 mmol/L (-3.0-3); Arterial Blood Gas Oxygen Sat 92.2 mmHG (95.0-100.0); Arterial COHb 0.3 % (0.0-3.0); Arterial Fraction of Oxyhgb 91.7 % (93.0-99.0); Arterial HCO3 24.5 mmol/L (22.0-26.0); Arterial MetHb 0.2 % (0.0-1.5); Arterial pCO2 38.5 mmhg (35-45); MODE NASAL CANNULA; Site Right Radial
[2018-06-28] MEDS: VANCOMYCIN 500 MG (PMX) 100 ML IVPB (11:19)
[2018-06-28] MEDS: MEROPENEM 500MG/50 ML (PMX) 50 ML IVPB ×2 (13:53→22:49)
[2018-06-28] MEDS: FLUCONAZOLE 100 MG TAB PO (14:30)
[2018-06-28] MEDS: D5W-0.45 NACL + KCL 20 MEQ 1,000 ML IV (16:56)
[2018-06-29] MEDS: ALBUTEROL/IPRATROPIUM (NEB) 3 ML AMP HHN ×4 (02:07→22:07)
[2018-06-29 05:19] LABS: ADD MAN DIFF? NO
[2018-06-29 05:24] LABS: BASOPHILS % 0.3 % (0.0-2.0); EOSINOPHILS # 0.3 10^3/ul (0.0-0.5); EOSINOPHILS % 3.8 % (0.0-7.0); HEMATOCRIT 27.5 % (42.0-52.0); HEMOGLOBIN 8.1 g/dl (14.0-18.0); LYMPHOCYTES # 0.9 10^3/ul (0.8-2.9); LYMPHOCYTES % 10.8 % (15.0-51.0); MEAN CORPUSCULAR HEMOGLOBIN 28.1 pg (29.0-33.0); MEAN CORPUSCULAR HGB CONC 29.5 g/dl (32.0-37.0); MEAN CORPUSCULAR VOLUME 95.5 fl (82.0-101.0); MEAN PLATELET VOLUME 10.9 fl (7.4-10.4); MONOCYTE # 0.6 10^3/ul (0.3-0.9); MONOCYTES % 6.5 % (0.0-11.0); NEUTROPHIL # 6.8 10^3/ul (1.6-7.5); NEUTROPHILS % 78.1 % (39.0-77.0); PLATELET COUNT 273 10^3/UL (140-415); RED BLOOD COUNT 2.88 10^6/ul (4.70-6.10); RED CELL DISTRIBUTION WIDTH 15.4 % (11.5-14.5)
[2018-06-29 05:24] LABS: WHITE BLOOD COUNT 8.7 10^3/ul (4.8-10.8)
[2018-06-29] MEDS: LANSOPRAZOLE 30 MG CAP GTB ×2 (05:42→18:28)
[2018-06-29 05:57] LABS: ANION GAP 3 (5-13); BLOOD UREA NITROGEN 39 mg/dl (7-20); CALCIUM 9.7 mg/dl (8.4-10.2); CARBON DIOXIDE 27 mmol/L (21-31); CHLORIDE 121 mmol/L (97-110); GLUCOSE 97 mg/dl (70-220); POTASSIUM 3.6 mmol/L (3.5-5.1); SODIUM 151 mmol/L (135-144)
[2018-06-29] MEDS: D5W-0.45 NACL + KCL 20 MEQ 1,000 ML IV ×3 (06:33→21:06)
[2018-06-29] MEDS: FLUCONAZOLE 100 MG TAB PO (08:14)
[2018-06-29] MEDS: ASPIRIN 81 MG TAB GTB (08:14)
[2018-06-29] MEDS: MEROPENEM 500MG/50 ML (PMX) 50 ML IVPB ×2 (08:14→21:00)
[2018-06-29] MEDS: FERROUS SULFATE 60 MG/ML 5ML CUP GTB ×3 (08:14→23:30)
[2018-06-29] MEDS: MULTIVITAMINS 30 ML CUP GTB (08:14)
[2018-06-29] MEDS: DOCUSATE SODIUM 100 MG CAP PO (08:14)
[2018-06-29] MEDS: BALSAM PERU/CASTOR OIL 60 GM TUBE TOP (08:14)
[2018-06-29] MEDS: LACTOBACILLUS RHAMNOSUS CAP GTB (08:14)
[2018-06-29] MEDS: MIDODRINE 5 MG TAB GTB ×3 (08:14→16:50)
[2018-06-29 10:41] LABS: VANCOMYCIN,TROUGH 9.8 ug/ml (10.0-20.0)
[2018-06-29] MEDS: VANCOMYCIN 500 MG (PMX) 100 ML IVPB (11:12)
[2018-06-30] MEDS: MEROPENEM 500MG/50 ML (PMX) 50 ML IVPB ×2 (01:06→09:28)
[2018-06-30] MEDS: ALBUTEROL/IPRATROPIUM (NEB) 3 ML AMP HHN ×4 (01:43→20:58)
[2018-06-30] MEDS: LANSOPRAZOLE 30 MG CAP GTB ×2 (05:56→18:02)
[2018-06-30 06:02] LABS: ADD MAN DIFF? NO
[2018-06-30 06:12] LABS: WHITE BLOOD COUNT 9.9 10^3/ul (4.8-10.8)
[2018-06-30 06:12] LABS: BASOPHILS % 0.4 % (0.0-2.0); EOSINOPHILS # 0.3 10^3/ul (0.0-0.5); EOSINOPHILS % 3.3 % (0.0-7.0); HEMATOCRIT 26.7 % (42.0-52.0); LYMPHOCYTES # 1.1 10^3/ul (0.8-2.9); LYMPHOCYTES % 10.6 % (15.0-51.0); MEAN CORPUSCULAR HEMOGLOBIN 28.3 pg (29.0-33.0); MEAN CORPUSCULAR VOLUME 94.3 fl (82.0-101.0); MEAN PLATELET VOLUME 10.8 fl (7.4-10.4); MONOCYTE # 0.6 10^3/ul (0.3-0.9); MONOCYTES % 6.3 % (0.0-11.0); NEUTROPHIL # 7.8 10^3/ul (1.6-7.5); NEUTROPHILS % 78.9 % (39.0-77.0); PLATELET COUNT 262 10^3/UL (140-415); RED BLOOD COUNT 2.83 10^6/ul (4.70-6.10); RED CELL DISTRIBUTION WIDTH 15.5 % (11.5-14.5)
[2018-06-30 06:26] LABS: ANION GAP 0 (5-13); BLOOD UREA NITROGEN 28 mg/dl (7-20); CALCIUM 9.6 mg/dl (8.4-10.2); CARBON DIOXIDE 28 mmol/L (21-31); CHLORIDE 116 mmol/L (97-110); GLUCOSE 110 mg/dl (70-220); SODIUM 144 mmol/L (135-144)
[2018-06-30] MEDS ORDERED: ONDANSETRON 4 MG TAB GTB (08:00)
[2018-06-30] MEDS: MIDODRINE 5 MG TAB GTB ×3 (09:00→18:02)
[2018-06-30] MEDS: BALSAM PERU/CASTOR OIL 60 GM TUBE TOP (09:28)
[2018-06-30] MEDS: MULTIVITAMINS 30 ML CUP GTB (09:28)
[2018-06-30] MEDS: LACTOBACILLUS RHAMNOSUS CAP GTB (09:28)
[2018-06-30] MEDS: DOCUSATE SODIUM 10 MG/ML (10ML CUP) GTB (09:28)
[2018-06-30] MEDS: ASPIRIN 81 MG TAB GTB (09:28)
[2018-06-30] MEDS: FLUCONAZOLE 100 MG TAB GTB (09:29)
[2018-06-30] MEDS: FERROUS SULFATE 60 MG/ML 5ML CUP GTB ×2 (09:29→20:22)
[2018-06-30] MEDS: D5W-0.45 NACL + KCL 20 MEQ 1,000 ML IV (09:34)
[2018-06-30] MEDS: VANCOMYCIN 750 MG (PMX) 250 ML IVPB (11:58)
[2018-06-30] MEDS: MEROPENEM 1 GM/50ML(PMX) 50 ML IVPB (20:22)
[2018-07-01] MEDS: D5W-0.45 NACL + KCL 20 MEQ 1,000 ML IV ×3 (02:06→21:09)
[2018-07-01] MEDS: LORAZEPAM 0.5 MG TAB GTB (02:28)
[2018-07-01] MEDS: ALBUTEROL/IPRATROPIUM (NEB) 3 ML AMP HHN ×4 (02:30→19:23)
[2018-07-01] MEDS: LANSOPRAZOLE 30 MG CAP GTB ×2 (05:50→17:31)
[2018-07-01 06:27] LABS: ADD MAN DIFF? NO
[2018-07-01 06:33] LABS: WHITE BLOOD COUNT 14.1 10^3/ul (4.8-10.8)
[2018-07-01 06:33] LABS: BASOPHIL # 0.1 10^3/ul (0.0-0.1); BASOPHILS % 0.4 % (0.0-2.0); EOSINOPHILS # 0.2 10^3/ul (0.0-0.5); EOSINOPHILS % 1.3 % (0.0-7.0); HEMATOCRIT 29.5 % (42.0-52.0); HEMOGLOBIN 8.9 g/dl (14.0-18.0); LYMPHOCYTES # 1.4 10^3/ul (0.8-2.9); LYMPHOCYTES % 10.2 % (15.0-51.0); MEAN CORPUSCULAR HEMOGLOBIN 27.8 pg (29.0-33.0); MEAN CORPUSCULAR HGB CONC 30.2 g/dl (32.0-37.0); MEAN CORPUSCULAR VOLUME 92.2 fl (82.0-101.0); MEAN PLATELET VOLUME 10.5 fl (7.4-10.4); NEUTROPHIL # 11.4 10^3/ul (1.6-7.5); NEUTROPHILS % 80.5 % (39.0-77.0); PLATELET COUNT 294 10^3/UL (140-415); RED CELL DISTRIBUTION WIDTH 15.4 % (11.5-14.5)
[2018-07-01 06:53] LABS: ANION GAP 7 (5-13); BLOOD UREA NITROGEN 26 mg/dl (7-20); CALCIUM 9.4 mg/dl (8.4-10.2); CARBON DIOXIDE 25 mmol/L (21-31); CHLORIDE 106 mmol/L (97-110); CREATININE 0.77 mg/dl (0.61-1.24); GLUCOSE 112 mg/dl (70-220); POTASSIUM 4.2 mmol/L (3.5-5.1); SODIUM 138 mmol/L (135-144)
[2018-07-01] MEDS: MULTIVITAMINS 30 ML CUP GTB (08:38)
[2018-07-01] MEDS: MIDODRINE 5 MG TAB GTB ×3 (08:38→17:31)
[2018-07-01] MEDS: LACTOBACILLUS RHAMNOSUS CAP GTB (08:38)
[2018-07-01] MEDS: ASPIRIN 81 MG TAB GTB (08:38)
[2018-07-01] MEDS: DOCUSATE SODIUM 10 MG/ML (10ML CUP) GTB (08:38)
[2018-07-01] MEDS: FERROUS SULFATE 60 MG/ML 5ML CUP GTB ×2 (08:39→21:04)
[2018-07-01] MEDS: FLUCONAZOLE 100 MG TAB GTB (08:39)
[2018-07-01] MEDS: MEROPENEM 1 GM/50ML(PMX) 50 ML IVPB ×2 (08:40→21:02)
[2018-07-01] MEDS: BALSAM PERU/CASTOR OIL 60 GM TUBE TOP (08:41)
[2018-07-01] MEDS: ACETAMINOPHEN 650MG/20.3ML CUP GTB (08:45)
[2018-07-01 10:18] LABS: LACTIC ACID 1.8 mmol/L (0.5-2.0)
[2018-07-01] MEDS: VANCOMYCIN 750 MG (PMX) 250 ML IVPB (11:58)
[2018-07-02] MEDS: ALBUTEROL/IPRATROPIUM (NEB) 3 ML AMP HHN ×4 (01:25→20:05)
[2018-07-02 05:00] LABS: ADD MAN DIFF? NO
[2018-07-02 05:06] LABS: WHITE BLOOD COUNT 10.7 10^3/ul (4.8-10.8)
[2018-07-02 05:06] LABS: BASOPHIL # 0.1 10^3/ul (0.0-0.1); BASOPHILS % 0.5 % (0.0-2.0); EOSINOPHILS # 0.4 10^3/ul (0.0-0.5); EOSINOPHILS % 3.5 % (0.0-7.0); HEMATOCRIT 25.2 % (42.0-52.0); HEMOGLOBIN 7.7 g/dl (14.0-18.0); LYMPHOCYTES # 1.1 10^3/ul (0.8-2.9); LYMPHOCYTES % 10.7 % (15.0-51.0); MEAN CORPUSCULAR HGB CONC 30.6 g/dl (32.0-37.0); MEAN CORPUSCULAR VOLUME 91.6 fl (82.0-101.0); MEAN PLATELET VOLUME 10.5 fl (7.4-10.4); MONOCYTE # 0.8 10^3/ul (0.3-0.9); MONOCYTES % 7.4 % (0.0-11.0); NEUTROPHIL # 8.2 10^3/ul (1.6-7.5); PLATELET COUNT 222 10^3/UL (140-415); RED BLOOD COUNT 2.75 10^6/ul (4.70-6.10); RED CELL DISTRIBUTION WIDTH 15.2 % (11.5-14.5)
[2018-07-02 05:42] LABS: ANION GAP 5 (5-13); BLOOD UREA NITROGEN 29 mg/dl (7-20); CALCIUM 9.6 mg/dl (8.4-10.2); CARBON DIOXIDE 25 mmol/L (21-31); CHLORIDE 107 mmol/L (97-110); CREATININE 0.77 mg/dl (0.61-1.24); GLUCOSE 105 mg/dl (70-220); POTASSIUM 4.5 mmol/L (3.5-5.1); SODIUM 137 mmol/L (135-144)
[2018-07-02] MEDS: D5W-0.45 NACL + KCL 20 MEQ 1,000 ML IV ×2 (06:18→17:37)
[2018-07-02] MEDS: LANSOPRAZOLE 30 MG CAP GTB ×2 (06:20→17:37)
[2018-07-02] MEDS: FERROUS SULFATE 60 MG/ML 5ML CUP GTB ×2 (09:48→20:17)
[2018-07-02] MEDS: DOCUSATE SODIUM 10 MG/ML (10ML CUP) GTB (09:48)
[2018-07-02] MEDS: LACTOBACILLUS RHAMNOSUS CAP GTB (09:49)
[2018-07-02] MEDS: FLUCONAZOLE 100 MG TAB GTB (09:49)
[2018-07-02] MEDS: MULTIVITAMINS 30 ML CUP GTB (09:49)
[2018-07-02] MEDS: ASPIRIN 81 MG TAB GTB (09:49)
[2018-07-02] MEDS: MEROPENEM 1 GM/50ML(PMX) 50 ML IVPB ×2 (09:49→20:17)
[2018-07-02] MEDS: BALSAM PERU/CASTOR OIL 60 GM TUBE TOP (09:50)
[2018-07-02] MEDS: MIDODRINE 5 MG TAB GTB ×3 (09:52→17:38)
[2018-07-02] MEDS: VANCOMYCIN 750 MG (PMX) 250 ML IVPB (11:09)
[2018-07-03] MEDS: ALBUTEROL/IPRATROPIUM (NEB) 3 ML AMP HHN ×4 (01:16→19:20)
[2018-07-03] MEDS: GUAIFENESIN 20 MG/ML 5ML CUP PO (01:34)
[2018-07-03] MEDS: ACETAMINOPHEN 650MG/20.3ML CUP GTB (05:03)
[2018-07-03] MEDS: LANSOPRAZOLE 30 MG CAP GTB ×2 (06:03→18:08)
[2018-07-03 06:09] LABS: ADD MAN DIFF? NO
[2018-07-03 06:24] LABS: BASOPHILS % 0.5 % (0.0-2.0); EOSINOPHILS # 0.3 10^3/ul (0.0-0.5); EOSINOPHILS % 3.7 % (0.0-7.0); HEMATOCRIT 25.7 % (42.0-52.0); HEMOGLOBIN 7.9 g/dl (14.0-18.0); LYMPHOCYTES # 0.8 10^3/ul (0.8-2.9); LYMPHOCYTES % 9.8 % (15.0-51.0); MEAN CORPUSCULAR HEMOGLOBIN 27.9 pg (29.0-33.0); MEAN CORPUSCULAR HGB CONC 30.7 g/dl (32.0-37.0); MEAN CORPUSCULAR VOLUME 90.8 fl (82.0-101.0); MEAN PLATELET VOLUME 11.1 fl (7.4-10.4); MONOCYTE # 0.7 10^3/ul (0.3-0.9); NEUTROPHILS % 75.6 % (39.0-77.0); PLATELET COUNT 257 10^3/UL (140-415); RED BLOOD COUNT 2.83 10^6/ul (4.70-6.10)
[2018-07-03 06:24] LABS: WHITE BLOOD COUNT 7.9 10^3/ul (4.8-10.8)
[2018-07-03 07:13] LABS: BLOOD UREA NITROGEN 27 mg/dl (7-20); CALCIUM 9.7 mg/dl (8.4-10.2); CARBON DIOXIDE 28 mmol/L (21-31); CREATININE 0.71 mg/dl (0.61-1.24); GLUCOSE 107 mg/dl (70-220); POTASSIUM 4.7 mmol/L (3.5-5.1); SODIUM 135 mmol/L (135-144)
[2018-07-03 07:16] LABS: ANION GAP 4 (5-13); CHLORIDE 103 mmol/L (97-110)
[2018-07-03] MEDS: DOCUSATE SODIUM 10 MG/ML (10ML CUP) GTB (09:35)
[2018-07-03] MEDS: MEROPENEM 1 GM/50ML(PMX) 50 ML IVPB ×2 (09:35→21:31)
[2018-07-03] MEDS: ASPIRIN 81 MG TAB GTB (09:35)
[2018-07-03] MEDS: LACTOBACILLUS RHAMNOSUS CAP GTB (09:35)
[2018-07-03] MEDS: FERROUS SULFATE 60 MG/ML 5ML CUP GTB ×2 (09:35→21:31)
[2018-07-03] MEDS: MULTIVITAMINS 30 ML CUP GTB (09:35)
[2018-07-03] MEDS: FLUCONAZOLE 100 MG TAB GTB (09:35)
[2018-07-03] MEDS: BALSAM PERU/CASTOR OIL 60 GM TUBE TOP (09:36)
[2018-07-03] MEDS: D5W-0.45 NACL + KCL 20 MEQ 1,000 ML IV (09:41)
[2018-07-03] MEDS: MIDODRINE 5 MG TAB GTB ×3 (09:45→18:08)
[2018-07-03 11:11] LABS: BLOOD UREA NITROGEN 26 mg/dl (7-20)
[2018-07-03 11:11] LABS: CREATININE 0.71 mg/dl (0.61-1.24)
[2018-07-03 11:15] LABS: VANCOMYCIN,TROUGH 13.4 ug/ml (10.0-20.0)
[2018-07-03] MEDS: VANCOMYCIN 750 MG (PMX) 250 ML IVPB (12:08)
[2018-07-04] MEDS: ALBUTEROL/IPRATROPIUM (NEB) 3 ML AMP HHN ×4 (01:02→20:01)
[2018-07-04] MEDS: D5W-0.45 NACL + KCL 20 MEQ 1,000 ML IV ×3 (04:24→22:18)
[2018-07-04] MEDS: LANSOPRAZOLE 30 MG CAP GTB ×2 (06:21→17:25)
[2018-07-04] MEDS: FERROUS SULFATE 60 MG/ML 5ML CUP GTB ×2 (08:56→22:18)
[2018-07-04] MEDS: ASPIRIN 81 MG TAB GTB (08:56)
[2018-07-04] MEDS: MULTIVITAMINS 30 ML CUP GTB (08:56)
[2018-07-04] MEDS: MIDODRINE 5 MG TAB GTB ×3 (08:56→17:25)
[2018-07-04] MEDS: DOCUSATE SODIUM 10 MG/ML (10ML CUP) GTB (08:56)
[2018-07-04] MEDS: MEROPENEM 1 GM/50ML(PMX) 50 ML IVPB ×2 (08:57→22:18)
[2018-07-04] MEDS: FLUCONAZOLE 100 MG TAB GTB (08:57)
[2018-07-04] MEDS: LACTOBACILLUS RHAMNOSUS CAP GTB (08:57)
[2018-07-04] MEDS: BALSAM PERU/CASTOR OIL 60 GM TUBE TOP (08:58)
[2018-07-04] MEDS: VANCOMYCIN 750 MG (PMX) 250 ML IVPB (11:48)
[2018-07-04] MEDS: GUAIFENESIN 20 MG/ML 5ML CUP PO (22:18)
[2018-07-05] MEDS: ALBUTEROL/IPRATROPIUM (NEB) 3 ML AMP HHN ×4 (01:09→19:49)
[2018-07-05] MEDS: LANSOPRAZOLE 30 MG CAP GTB ×2 (05:52→17:16)
[2018-07-05] MEDS: FERROUS SULFATE 60 MG/ML 5ML CUP GTB ×2 (08:42→20:49)
[2018-07-05] MEDS: MULTIVITAMINS 30 ML CUP GTB (08:42)
[2018-07-05] MEDS: DOCUSATE SODIUM 10 MG/ML (10ML CUP) GTB (08:42)
[2018-07-05] MEDS: FLUCONAZOLE 100 MG TAB GTB (08:42)
[2018-07-05] MEDS: ASPIRIN 81 MG TAB GTB (08:42)
[2018-07-05] MEDS: LACTOBACILLUS RHAMNOSUS CAP GTB (08:42)
[2018-07-05] MEDS: BALSAM PERU/CASTOR OIL 60 GM TUBE TOP ×2 (08:43→20:49)
[2018-07-05] MEDS: MEROPENEM 1 GM/50ML(PMX) 50 ML IVPB ×2 (08:43→20:49)
[2018-07-05] MEDS: MIDODRINE 5 MG TAB GTB ×3 (09:16→17:16)
[2018-07-05] MEDS: VANCOMYCIN 750 MG (PMX) 250 ML IVPB (10:57)
[2018-07-05] MEDS: D5W-0.45 NACL + KCL 20 MEQ 1,000 ML IV (17:17)
[2018-07-05] MEDS: LORAZEPAM 0.5 MG TAB GTB (20:49)
[2018-07-05] MEDS: GUAIFENESIN 20 MG/ML 5ML CUP PO (20:49)
[2018-07-06] MEDS: ALBUTEROL/IPRATROPIUM (NEB) 3 ML AMP HHN ×4 (01:53→19:39)
[2018-07-06] MEDS: LANSOPRAZOLE 30 MG CAP GTB ×2 (05:09→17:31)
[2018-07-06 06:38] LABS: CREATININE 0.58 mg/dl (0.61-1.24)
[2018-07-06 06:38] LABS: BLOOD UREA NITROGEN 26 mg/dl (7-20)
[2018-07-06] MEDS: MULTIVITAMINS 30 ML CUP GTB (10:03)
[2018-07-06] MEDS: FERROUS SULFATE 60 MG/ML 5ML CUP GTB ×2 (10:04→20:10)
[2018-07-06] MEDS: DOCUSATE SODIUM 10 MG/ML (10ML CUP) GTB (10:04)
[2018-07-06] MEDS: MEROPENEM 1 GM/50ML(PMX) 50 ML IVPB ×2 (10:04→20:10)
[2018-07-06] MEDS: FLUCONAZOLE 100 MG TAB GTB (10:04)
[2018-07-06] MEDS: LACTOBACILLUS RHAMNOSUS CAP GTB (10:04)
[2018-07-06] MEDS: D5W-0.45 NACL + KCL 20 MEQ 1,000 ML IV (10:05)
[2018-07-06] MEDS: ASPIRIN 81 MG TAB GTB (10:05)
[2018-07-06] MEDS: BALSAM PERU/CASTOR OIL 60 GM TUBE TOP ×2 (10:05→20:11)
[2018-07-06] MEDS: MIDODRINE 5 MG TAB GTB ×3 (10:14→17:31)
[2018-07-06] MEDS: ACETAMINOPHEN 650MG/20.3ML CUP GTB (10:14)
[2018-07-06] MEDS: VANCOMYCIN 750 MG (PMX) 250 ML IVPB (11:26)
[2018-07-07] MEDS: D5W-0.45 NACL + KCL 20 MEQ 1,000 ML IV ×3 (02:06→20:36)
[2018-07-07] MEDS: ALBUTEROL/IPRATROPIUM (NEB) 3 ML AMP HHN ×4 (02:07→20:00)
[2018-07-07] MEDS: LANSOPRAZOLE 30 MG CAP GTB ×2 (05:29→18:20)
[2018-07-07] MEDS: DOCUSATE SODIUM 10 MG/ML (10ML CUP) GTB (08:39)
[2018-07-07] MEDS: MULTIVITAMINS 30 ML CUP GTB (08:39)
[2018-07-07] MEDS: FERROUS SULFATE 60 MG/ML 5ML CUP GTB ×2 (08:39→20:27)
[2018-07-07] MEDS: ASPIRIN 81 MG TAB GTB (08:39)
[2018-07-07] MEDS: BALSAM PERU/CASTOR OIL 60 GM TUBE TOP ×2 (08:39→20:27)
[2018-07-07] MEDS: MEROPENEM 1 GM/50ML(PMX) 50 ML IVPB ×2 (08:39→20:27)
[2018-07-07] MEDS: LACTOBACILLUS RHAMNOSUS CAP GTB (08:39)
[2018-07-07] MEDS: FLUCONAZOLE 100 MG TAB GTB (08:39)
[2018-07-07] MEDS: MIDODRINE 5 MG TAB GTB ×3 (08:53→18:20)
[2018-07-07 12:00] LABS: VANCOMYCIN,TROUGH 16.6 ug/ml (10.0-20.0)
[2018-07-07] MEDS: VANCOMYCIN 750 MG (PMX) 250 ML IVPB (13:41)
[2018-07-08] MEDS: ALBUTEROL/IPRATROPIUM (NEB) 3 ML AMP HHN ×5 (02:00→20:37)
[2018-07-08] MEDS: D5W-0.45 NACL + KCL 20 MEQ 1,000 ML IV ×2 (04:25→18:28)
[2018-07-08] MEDS: LANSOPRAZOLE 30 MG CAP GTB ×2 (05:28→18:27)
[2018-07-08 05:54] LABS: ADD MAN DIFF? NO
[2018-07-08 05:57] LABS: WHITE BLOOD COUNT 7.5 10^3/ul (4.8-10.8)
[2018-07-08 05:57] LABS: BASOPHILS % 0.5 % (0.0-2.0); EOSINOPHILS # 0.4 10^3/ul (0.0-0.5); EOSINOPHILS % 5.4 % (0.0-7.0); HEMATOCRIT 27.6 % (42.0-52.0); HEMOGLOBIN 8.4 g/dl (14.0-18.0); LYMPHOCYTES # 1.4 10^3/ul (0.8-2.9); LYMPHOCYTES % 18.7 % (15.0-51.0); MEAN CORPUSCULAR HEMOGLOBIN 27.7 pg (29.0-33.0); MEAN CORPUSCULAR HGB CONC 30.4 g/dl (32.0-37.0); MEAN CORPUSCULAR VOLUME 91.1 fl (82.0-101.0); MEAN PLATELET VOLUME 10.6 fl (7.4-10.4); MONOCYTE # 0.6 10^3/ul (0.3-0.9); MONOCYTES % 7.4 % (0.0-11.0); NEUTROPHIL # 4.9 10^3/ul (1.6-7.5); NEUTROPHILS % 65.2 % (39.0-77.0); PLATELET COUNT 361 10^3/UL (140-415); RED BLOOD COUNT 3.03 10^6/ul (4.70-6.10); RED CELL DISTRIBUTION WIDTH 15.1 % (11.5-14.5)
[2018-07-08 06:37] LABS: ANION GAP 4 (5-13); BLOOD UREA NITROGEN 25 mg/dl (7-20); CALCIUM 9.8 mg/dl (8.4-10.2); CARBON DIOXIDE 31 mmol/L (21-31); CHLORIDE 100 mmol/L (97-110); CREATININE 0.61 mg/dl (0.61-1.24); GLUCOSE 99 mg/dl (70-220); SODIUM 135 mmol/L (135-144)
[2018-07-08] MEDS: ASPIRIN 81 MG TAB GTB (09:14)
[2018-07-08] MEDS: DOCUSATE SODIUM 10 MG/ML (10ML CUP) GTB (09:15)
[2018-07-08] MEDS: LACTOBACILLUS RHAMNOSUS CAP GTB (09:16)
[2018-07-08] MEDS: FLUCONAZOLE 100 MG TAB GTB (09:17)
[2018-07-08] MEDS: FERROUS SULFATE 60 MG/ML 5ML CUP GTB ×2 (09:17→21:35)
[2018-07-08] MEDS: MULTIVITAMINS 30 ML CUP GTB (09:18)
[2018-07-08] MEDS: MIDODRINE 5 MG TAB GTB ×3 (09:19→18:27)
[2018-07-08] MEDS: MEROPENEM 1 GM/50ML(PMX) 50 ML IVPB ×2 (09:20→21:35)
[2018-07-08] MEDS: VANCOMYCIN 500 MG (PMX) 100 ML IVPB (13:08)
[2018-07-08] MEDS: BALSAM PERU/CASTOR OIL 60 GM TUBE TOP ×2 (18:28→21:36)
[2018-07-09] MEDS: LORAZEPAM 0.5 MG TAB GTB (01:49)
[2018-07-09] MEDS: ALBUTEROL/IPRATROPIUM (NEB) 3 ML AMP HHN ×4 (02:02→21:14)
[2018-07-09 06:23] LABS: ADD MAN DIFF? NO
[2018-07-09] MEDS: LANSOPRAZOLE 30 MG CAP GTB ×2 (06:27→18:49)
[2018-07-09 06:34] LABS: BASOPHIL # 0.1 10^3/ul (0.0-0.1); BASOPHILS % 0.6 % (0.0-2.0); EOSINOPHILS # 0.4 10^3/ul (0.0-0.5); EOSINOPHILS % 5.4 % (0.0-7.0); HEMATOCRIT 27.7 % (42.0-52.0); HEMOGLOBIN 8.4 g/dl (14.0-18.0); LYMPHOCYTES # 1.6 10^3/ul (0.8-2.9); LYMPHOCYTES % 19.7 % (15.0-51.0); MEAN CORPUSCULAR HEMOGLOBIN 27.5 pg (29.0-33.0); MEAN CORPUSCULAR HGB CONC 30.3 g/dl (32.0-37.0); MEAN CORPUSCULAR VOLUME 90.5 fl (82.0-101.0); MEAN PLATELET VOLUME 10.7 fl (7.4-10.4); MONOCYTE # 0.7 10^3/ul (0.3-0.9); MONOCYTES % 8.6 % (0.0-11.0); NEUTROPHIL # 5.2 10^3/ul (1.6-7.5); NEUTROPHILS % 62.8 % (39.0-77.0); PLATELET COUNT 360 10^3/UL (140-415); RED BLOOD COUNT 3.06 10^6/ul (4.70-6.10)
[2018-07-09 06:34] LABS: WHITE BLOOD COUNT 8.2 10^3/ul (4.8-10.8)
[2018-07-09] MEDS: GUAIFENESIN 20 MG/ML 5ML CUP PO (06:52)
[2018-07-09 07:11] LABS: ANION GAP 4 (5-13); BLOOD UREA NITROGEN 28 mg/dl (7-20); CALCIUM 9.6 mg/dl (8.4-10.2); CARBON DIOXIDE 30 mmol/L (21-31); CHLORIDE 99 mmol/L (97-110); CREATININE 0.61 mg/dl (0.61-1.24); GLUCOSE 88 mg/dl (70-220); SODIUM 133 mmol/L (135-144)
[2018-07-09] MEDS: MULTIVITAMINS 30 ML CUP GTB (10:09)
[2018-07-09] MEDS: FERROUS SULFATE 60 MG/ML 5ML CUP GTB ×2 (10:09→20:45)
[2018-07-09] MEDS: DOCUSATE SODIUM 10 MG/ML (10ML CUP) GTB (10:09)
[2018-07-09] MEDS: ASPIRIN 81 MG TAB GTB (10:10)
[2018-07-09] MEDS: FLUCONAZOLE 100 MG TAB GTB (10:10)
[2018-07-09] MEDS: LACTOBACILLUS RHAMNOSUS CAP GTB (10:10)
[2018-07-09] MEDS: MEROPENEM 1 GM/50ML(PMX) 50 ML IVPB ×2 (10:10→20:45)
[2018-07-09] MEDS: BALSAM PERU/CASTOR OIL 60 GM TUBE TOP ×2 (10:11→20:46)
[2018-07-09] MEDS: MIDODRINE 5 MG TAB GTB ×3 (10:16→18:50)
[2018-07-09] MEDS: D5W-0.45 NACL + KCL 20 MEQ 1,000 ML IV (10:38)
[2018-07-09] MEDS: VANCOMYCIN 500 MG (PMX) 100 ML IVPB (15:54)
[2018-07-10] MEDS: D5W-0.45 NACL + KCL 20 MEQ 1,000 ML IV ×2 (00:37→16:36)
[2018-07-10] MEDS: ALBUTEROL/IPRATROPIUM (NEB) 3 ML AMP HHN ×4 (01:52→20:27)
[2018-07-10] MEDS: LANSOPRAZOLE 30 MG CAP GTB ×2 (05:53→17:59)
[2018-07-10] MEDS: MIDODRINE 5 MG TAB GTB ×3 (09:00→17:59)
[2018-07-10] MEDS: ASPIRIN 81 MG TAB GTB (09:32)
[2018-07-10] MEDS: MEROPENEM 1 GM/50ML(PMX) 50 ML IVPB ×2 (09:32→22:27)
[2018-07-10] MEDS: DOCUSATE SODIUM 10 MG/ML (10ML CUP) GTB (09:32)
[2018-07-10] MEDS: LACTOBACILLUS RHAMNOSUS CAP GTB (09:32)
[2018-07-10] MEDS: FERROUS SULFATE 60 MG/ML 5ML CUP GTB ×2 (09:32→22:27)
[2018-07-10] MEDS: MULTIVITAMINS 30 ML CUP GTB (09:32)
[2018-07-10] MEDS: FLUCONAZOLE 100 MG TAB GTB (09:32)
[2018-07-10] MEDS: BALSAM PERU/CASTOR OIL 60 GM TUBE TOP ×2 (09:33→22:27)
[2018-07-10] MEDS: VANCOMYCIN 500 MG (PMX) 100 ML IVPB (14:06)
[2018-07-10] MEDS: LIDOCAINE 1% (MPF) 5 ML VIAL SC (19:40)
[2018-07-10] MEDS: GUAIFENESIN 20 MG/ML 5ML CUP PO (22:27)
== END 2018-07-11 00:23 | DRG 871 ==
LOC: 2NE 06-29 17:10 → E/R 08:49 → ICU 11:48
PROC: 05H433Z Insertion of Infusion Device into Left Innominate Vein, Percutaneous Approach (ICD-10-PCS; principal; 2018-07-10)
DX: A41.9 Sepsis, unspecified organism (principal); R65.21 Severe sepsis with septic shock; J18.9 Pneumonia, unspecified organism; J96.01 Acute respiratory failure with hypoxia; N17.9 Acute kidney failure, unspecified; N39.0 Urinary tract infection, site not specified; G93.40 Encephalopathy, unspecified; E44.0 Moderate protein-calorie malnutrition; E87.0 Hyperosmolality and hypernatremia; I50.30 Unspecified diastolic (congestive) heart failure; T82.7XXA Infection and inflammatory reaction due to other cardiac and vascular devices, implants and grafts, initial encounter; G82.20 Paraplegia, unspecified; Z66 Do not resuscitate; B95.2 Enterococcus as the cause of diseases classified elsewhere; B96.20 Unspecified Escherichia coli [E. coli] as the cause of diseases classified elsewhere; D64.9 Anemia, unspecified; I11.0 Hypertensive heart disease with heart failure; G20 Parkinson's disease; F02.80 Dementia in other diseases classified elsewhere, unspecified severity, without behavioral disturbance, psychotic disturbance, mood disturbance, and anxiety; G40.909 Epilepsy, unspecified, not intractable, without status epilepticus; I25.10 Atherosclerotic heart disease of native coronary artery without angina pectoris; R13.10 Dysphagia, unspecified; R53.81 Other malaise; R19.7 Diarrhea, unspecified; R62.7 Adult failure to thrive; Y95 Nosocomial condition; Z68.21 Body mass index [BMI] 21.0-21.9, adult; Z93.1 Gastrostomy status; Z95.1 Presence of aortocoronary bypass graft; Z79.2 Long term (current) use of antibiotics; Z79.82 Long term (current) use of aspirin
CPT/HCPCS: 36415; 36569; 36600; 71045; 76937; 80048; 80053; 80202; 81001; 81003; 82565; 82803; 83605; 83735; 84100; 84484; 84520; 85025; 85610; 85730; 87040-91; 87045; 87070; 87081; 87086; 87400; 89220; 93005; 94640; 94664; 96365; 96375; 99285-25

== ENCOUNTER 2018-07-24 18:27 | Inpatient (IN) | payer MEDICARE ==
[2018-07-24] MEDS: ACETAMINOPHEN 650 MG SUPP PR (18:55)
[2018-07-24 19:07] LABS: ADD MAN DIFF? NO
[2018-07-24 19:11] LABS: ABNORMAL IP MESSAGE 1; BASOPHIL # 0.1 10^3/ul (0.0-0.1); BASOPHILS % 0.5 % (0.0-2.0); EOSINOPHILS % 5.2 % (0.0-7.0); HEMATOCRIT 31.5 % (42.0-52.0); HEMOGLOBIN 8.8 g/dl (14.0-18.0); LYMPHOCYTES # 1.6 10^3/ul (0.8-2.9); LYMPHOCYTES % 8.5 % (15.0-51.0); MEAN CORPUSCULAR HEMOGLOBIN 27.8 pg (29.0-33.0); MEAN CORPUSCULAR HGB CONC 27.9 g/dl (32.0-37.0); MEAN CORPUSCULAR VOLUME 99.7 fl (82.0-101.0); MEAN PLATELET VOLUME 11.2 fl (7.4-10.4); MONOCYTE # 0.7 10^3/ul (0.3-0.9); NEUTROPHILS % 81.4 % (39.0-77.0); PLATELET COUNT 271 10^3/UL (140-415); POSITIVE DIFF @See below; RED BLOOD COUNT 3.16 10^6/ul (4.70-6.10); RED CELL DISTRIBUTION WIDTH 16.3 % (11.5-14.5)
[2018-07-24 19:11] LABS: WHITE BLOOD COUNT 18.4 10^3/ul (4.8-10.8)
[2018-07-24 19:30] LABS: INR 1.25; PROTIME 15.8 Sec (11.9-14.9); PT RATIO 1.2
[2018-07-24 19:31] LABS: PARTIAL THROMBOPLASTIN TIME 26.4 Sec (23.0-35.0)
[2018-07-24 19:32] LABS: ALANINE AMINOTRANSFERASE 38 IU/L (13-69); ALBUMIN 3.8 g/dl (3.3-4.9); ALBUMIN/GLOBULIN RATIO 0.73; ALKALINE PHOSPHATASE 206 IU/L (42-121); ANION GAP 9 (5-13); ASPARTATE AMINO TRANSFERASE 69 IU/L (15-46); CARBON DIOXIDE 29 mmol/L (21-31); CHLORIDE 120 mmol/L (97-110); CREATININE 3.95 mg/dl (0.61-1.24); GLUCOSE 124 mg/dl (70-220); SODIUM 158 mmol/L (135-144)
[2018-07-24 19:49] LABS: POTASSIUM 6.1 mmol/L (3.5-5.1)
[2018-07-24 19:50] LABS: CALCIUM 13.6 mg/dl (8.4-10.2)
[2018-07-24] MEDS: CEFEPIME 2GM/50 ML (PMX) 50 ML IVPB (20:01)
[2018-07-24] MEDS: VANCOMYCIN 1 GM (PMX) 250 ML IVPB (20:30)
[2018-07-24] MEDS: SODIUM POLYSTYRENE 15 GM KIT (POWDER + SORBITOL) PO (20:30)
[2018-07-24 22:02] LABS: BLOOD UREA NITROGEN 159 mg/dl (7-20)
[2018-07-24] MEDS: DEXTROSE 5% 1,000 ML IV (22:18)
[2018-07-24 22:26] LABS: TROPONIN-I 0.018 ng/ml (0.000-0.120)
[2018-07-24 23:04] LABS: LACTIC ACID 1.2 mmol/L (0.5-2.0)
[2018-07-24] MEDS: MIDODRINE 5 MG TAB GTB (23:42)
[2018-07-25] MEDS: SOD CHLORIDE 0.9% 500 ML IV ×2 (00:53→01:55)
[2018-07-25] MEDS: LEVALBUTEROL (NEB) 0.63 MG/3 ML AMP HHN ×5 (02:00→20:30)
[2018-07-25 05:52] LABS: ADD MAN DIFF? NO
[2018-07-25 06:23] LABS: ANION GAP 11 (5-13); CALCIUM 11.2 mg/dl (8.4-10.2); CARBON DIOXIDE 22 mmol/L (21-31); CHLORIDE 104 mmol/L (97-110); CREATININE 3.49 mg/dl (0.61-1.24); POTASSIUM 5.7 mmol/L (3.5-5.1); SODIUM 137 mmol/L (135-144)
[2018-07-25 06:36] LABS: ADD UMIC YES; UR ASCORBIC ACID 40 mg/dL (NEGATIVE); UR BACTERIA MODERATE /HPF (NONE SEEN); UR BILIRUBIN (Dip) NEGATIVE (NEGATIVE); UR BLOOD (Dip) NEGATIVE (NEGATIVE); UR CLARITY TURBID (CLEAR); UR COLOR AMBER (YELLOW); UR GLUCOSE (Dip) NEGATIVE (NEGATIVE); UR KETONES (Dip) TRACE mg/dL (NEGATIVE); UR LEUKOCYTE ESTERASE (Dip) 3+ Leu/ul (NEGATIVE); UR MUCUS FEW /HPF (NONE SEEN); UR NITRITE (Dip) NEGATIVE (NEGATIVE); UR RBC 13 /HPF (0-5); UR RENAL EPITHELIAL CELL FEW /HPF (NONE SEEN); UR SQUAMOUS EPITHELIAL CELL MODERATE /HPF (FEW); UR TOTAL PROTEIN (Dip) 2+ mg/dl (NEGATIVE); UR UROBILINOGEN (Dip) NEGATIVE (NEGATIVE); UR WBC > 182 /HPF (0-5)
[2018-07-25 06:49] LABS: BLOOD UREA NITROGEN 137 mg/dl (7-20); GLUCOSE 664 mg/dl (70-220)
[2018-07-25] MEDS: DEXTROSE 5% 1,000 ML IV ×2 (09:19→17:47)
[2018-07-25] MEDS: ASPIRIN 81 MG TAB GTB (09:20)
[2018-07-25] MEDS: MIDODRINE 5 MG TAB NGT ×3 (09:20→17:42)
[2018-07-25 09:27] LABS: ABNORMAL IP MESSAGE 1; BASOPHIL # 0.1 10^3/ul (0.0-0.1); BASOPHILS % 0.6 % (0.0-2.0); EOSINOPHILS # 0.7 10^3/ul (0.0-0.5); EOSINOPHILS % 3.7 % (0.0-7.0); HEMATOCRIT 28.6 % (42.0-52.0); HEMOGLOBIN 7.9 g/dl (14.0-18.0); LYMPHOCYTES # 1.5 10^3/ul (0.8-2.9); MEAN CORPUSCULAR HEMOGLOBIN 28.7 pg (29.0-33.0); MEAN CORPUSCULAR HGB CONC 27.6 g/dl (32.0-37.0); MEAN PLATELET VOLUME 11.6 fl (7.4-10.4); MONOCYTE # 1.2 10^3/ul (0.3-0.9); MONOCYTES % 6.4 % (0.0-11.0); NEUTROPHIL # 15.3 10^3/ul (1.6-7.5); NEUTROPHILS % 80.8 % (39.0-77.0); NUCLEATED RED BLOOD CELLS% 0.2 /100WBC (0.0-0.0); PLATELET COUNT 255 10^3/UL (140-415); POSITIVE DIFF @See below; RED BLOOD COUNT 2.75 10^6/ul (4.70-6.10)
[2018-07-25 09:27] LABS: WHITE BLOOD COUNT 18.9 10^3/ul (4.8-10.8)
[2018-07-25] MEDS: ENOXAPARIN 30 MG/0.3 ML SYG SC (09:28)
[2018-07-25] MEDS ORDERED: BALSAM PERU/CASTOR OIL 60 GM TUBE TOP (15:30)
[2018-07-25] MEDS: BALSAM PERU/CASTOR OIL 60 GM TUBE TOP ×2 (16:29→20:45)
[2018-07-25] MEDS: CEFEPIME 1GM/50 ML (PMX) 50 ML IVPB (20:40)
== END 2018-07-25 23:11 | disposition expired | DRG 871 ==
LOC: E/R 18:27 → 6WM 19:38
PROVIDERS: Internal Medicine
DX: A41.1 Sepsis due to other specified staphylococcus (principal); J96.01 Acute respiratory failure with hypoxia; J69.0 Pneumonitis due to inhalation of food and vomit; N17.9 Acute kidney failure, unspecified; J44.0 Chronic obstructive pulmonary disease with (acute) lower respiratory infection; N39.0 Urinary tract infection, site not specified; I13.0 Hypertensive heart and chronic kidney disease with heart failure and stage 1 through stage 4 chronic kidney disease, or unspecified chronic kidney disease; Z66 Do not resuscitate; R65.20 Severe sepsis without septic shock; Z93.1 Gastrostomy status; I73.9 Peripheral vascular disease, unspecified; I25.10 Atherosclerotic heart disease of native coronary artery without angina pectoris; G20 Parkinson's disease; F02.80 Dementia in other diseases classified elsewhere, unspecified severity, without behavioral disturbance, psychotic disturbance, mood disturbance, and anxiety; R13.10 Dysphagia, unspecified; T81.89XD Other complications of procedures, not elsewhere classified, subsequent encounter; N18.9 Chronic kidney disease, unspecified; I50.9 Heart failure, unspecified; Z16.12 Extended spectrum beta lactamase (ESBL) resistance; Z79.82 Long term (current) use of aspirin; Z95.1 Presence of aortocoronary bypass graft
CPT/HCPCS: 71045; 80048; 80053; 81001; 82962; 83605; 84484; 85025; 85610; 85730; 87040-91; 87081; 87086; 93005; 94640; 94664; 99285-25